=== PATIENT | male | born 1945 | race Caucasian/White ===

== ENCOUNTER 2023-10-20 10:37 | Inpatient (IN) ==
--- NOTE | 2023-10-20 11:19 | XRay Report ---
XR chest 1V portable HISTORY: Shortness of breath. confusion COMPARISON: None. FINDINGS: There are low lung volumes. No pneumothorax. No pleural effusions. The cardiac silhouette i s mildly enlarged. There is mild diffuse interstitial thickening. This is likely chronic. No focal sho ng consolidations to suggest pneumonia. No evidence for pulmonary edema. There are old, healed right- sided rib fractures. IMPRESSION: 1. No acute process within the chest. 2. Mild cardiomegaly. ACT 112: Negative or not required by law. Electronically signed by: Sanchez Covington M.D. 10/20/2023 11:17 AM
[2023-10-20 11:55] LABS: Basophils # (auto) 0.01 K/uL (0.00-0.20); Basophils % (auto) 0.1 %; Eosinophils # (auto) 0.01 K/uL (0.00-0.50); Eosinophils % (auto) 0.1 %; Hematocrit (blood only) 44.8 % (42.0-52.0); Hemoglobin 14.8 g/dl (14.0-18.0); Immature Granulocytes # (auto) 0.19 K/uL (0.01-0.20); Immature Granulocytes % (auto) 1.4 %; Lymphocytes # (auto) 0.92 K/uL (1.20-3.40); Lymphocytes % (auto) 6.6 %; Mean Corpuscular Hemoglobin 29.8 pg (25.0-34.0); Mean Corpuscular Volume 90.1 fL (80.0-100.0); Mean Platelet Volume 11.6 fL (9.4-12.4); Monocytes # (auto) 0.98 K/uL (0.11-0.59); Monocytes % (auto) 7.1 %; Neutrophils # (auto) 11.77 K/uL (1.40-6.50); Neutrophils % (auto) 84.7 %; Platelet Count 210 K/uL (130-400); RDW Coefficient of Variation 12.8 % (11.5-14.5); RDW Standard Deviation 42.5 fL (36.4-46.3); Red Blood Count 4.97 M/uL (4.70-6.10); White Blood Count 13.88 K/ul (4.8-10.8)
[2023-10-20 12:05] LABS: Prothrombin Time 10.8 Seconds (9.0-12.0)
[2023-10-20 12:31] LABS: Troponin I High Sensitivity 25.7 pg/ml (0-20)
[2023-10-20 12:32] LABS: Albumin Level 4.4 gm/dl (3.4-5.0); Magnesium 2.6 mg/dl (1.7-2.4); Potassium 4.2 mmol/L (3.5-5.1)
[2023-10-20 12:38] LABS: Albumin Globulin Ratio 1.6 (0.9-2); BUN Creatinine Ratio 16.8 (10-20); Est GFR (African American) 37.2 ml/min; Est GFR (Non-African American) 32.1 ml/min; Globulin 2.8 gm/dl (2.5-4.0); Total Protein 7.2 gm/dl (6.0-8.3)
[2023-10-20 12:40] LABS: Thyroid Stimulating Hormone 0.92 uIu/ml (0.300-4.500)
[2023-10-20 12:44] LABS: Adenovirus PCR Not Detected (NotDetected); Bordetella parapertussis PCR Not Detected (NotDetected); Bordetella pertussis PCR Not Detected (NotDetected); Chlamydia pneumoniae PCR Not Detected (NotDetected); Coronavirus 229E PCR Not Detected (NotDetected); Coronavirus CoV-2 (COVID19)PCR Not Detected (NotDetected); Coronavirus HKU1 PCR Not Detected (NotDetected); Coronavirus NL63 PCR Not Detected (NotDetected); Coronavirus OC43PCR Not Detected (NotDetected); Human Metapneumovirus PCR Not Detected (NotDetected); Influenza A PCR Not Detected (NotDetected); Influenza B PCR Not Detected (NotDetected); Mycoplasma pneumoniae PCR Not Detected (NotDetected); Parainfluenza Virus 1 PCR Not Detected (NotDetected); Parainfluenza Virus 2 PCR Not Detected (NotDetected); Parainfluenza Virus 3 PCR Not Detected (NotDetected); Parainfluenza Virus 4 PCR Not Detected (NotDetected); Respiratory Syncytial VirusPCR Not Detected (NotDetected); Rhinovirus/Enterovirus PCR Not Detected (NotDetected)
--- NOTE | 2023-10-20 12:55 | CT Scan Report ---
CT head/brain wo con CLINICAL HISTORY: 78 years-old Male with confusion. No acute process. Acutely altered mental status TECHNIQUE: Multiple axial CT images of the head were obtained without contrast. A dose lowering tech nique was utilized adhering to the principles of ALARA. CT DOSE: 625.8 mGy.cm COMPARISON: None. FINDINGS: No acute intracranial hemorrhage, midline shift, intracranial mass, hydrocephalus, territorial ischem ia or abnormal extra-axial collection. Coarse calcifications of the falx cerebri. Involutional change s with chronic microvascular ischemic disease. Ventriculomegaly is likely on an ex vacuo basis. The calvarium is intact. The paranasal sinuses, mastoid air cells, and middle ear cavities are clear . IMPRESSION: No acute intracranial abnormality. ACT 112: Negative or not required by law. The above report was generated using voice recognition software. It may contain grammatical, syntax o r spelling errors. Electronically signed by: Sami Noble M.D. 10/20/2023 12:54 PM
--- NOTE | 2023-10-20 13:29 | Emergency Department Note ---
Impression & Plan Confusion, Non-ST elevation LA (NSTEMI), Acute dehydration, Acute hypernatremia, Elevated serum creatinine ED Provider Note HISTORY OF PRESENT ILLNESS: Patient is a 78-year-old male presenting with worsening mental status. Patient reportedly has "a decline in mental status" over the last few weeks, but worse in the last 48 hours. Per report from daughter, patient has been having decreased oral intake and been sleeping more frequently than normal. Daughter reports he is not his normal self. Patient does not answer questions and refuses to partake in examination. ROS: as above PHYSICAL EXAM: Constitutional: Patient appears in no acute distress. HENT: Head: Normocephalic and atraumatic. Eyes: EOMI, PERRL Mouth/Throat: Mucous membranes moist. Neck: Trachea midline. Neck supple. Cardiovascular: RRR, No murmurs, rubs or gallops. Intact distal pulses. Pulmonary/Chest: No respiratory distress. Breath sounds clear and equal bilaterally. No wheezes or rales. Abdominal: Abdomen soft, no tenderness, rebound or guarding. Musculoskeletal: No edema, tenderness or deformity noted. Skin: Warm and dry. No rash, erythema, pallor or cyanosis Neurological: Alert. CN II-XII grossly intact, moving all extremities spontaneously. MDM: - Vitals signs showed hypertension and tachycardia. - History obtained via patient. History as above. - Chronic conditions affecting care: dementia - Differential diagnoses include, but are not limited to: CVA; intracranial hemorrhage; pneumonia; UTI; dehydration; ACS - Order placed for continuous cardiac monitoring. At this time, monitor showed rate of 73 bpm with normal sinus rhythm, per my interpretation. - External medical records reviewed. - EKG interpreted by myself showed normal sinus rhythm. Rate 96 bpm. Qt 424. No acute ischemic changes. Noted to have occasional PVCs and RBBB. - Laboratory workup interpreted by myself showed leukocytosis (WBC 13.88); hypernatremia (Na 149); elevated creatinine (Cr 1.97); hypermagnesemia (Mg 2.6); elevated troponin (25.7); normal TSH - CXR negative for pneumonia, per my interpretation - CT head wo contrast negative for acute pathology - UA negative for infection - Viral respiratory panel negative - Patient given 1L NS in ER for hydration - Unclear etiology for his worsening confusion. May just be a progression of his dementia. However, he does appear to be dehydrated on laboratory workup, and this may be exacerbating his underlying etiology. - Discussion was had with rn case manager hospice about patient's case and need for admission - Hospitalist consulted for admission - [facility] ASSESSMENT AND PLAN: Diagnosis: confusion; NSTEMI; acute dehydration; elevated serum creatinine; acute hypernatremia Plan: admit Past Med/Surg History Social History Smoking Status: Unknown if ever smoked Home Meds Home Medications Medication Instructions Recorded Confirmed acetaminophen 325 mg tablet 325 mg PO Q6H PRN PAIN OR FEVER 10/20/23 10/20/23 acetaminophen 325 mg tablet 650 mg PO .@8AM,6PM 10/20/23 10/20/23 aspirin 81 mg tablet,delayed 81 mg PO .@8AM 10/20/23 10/20/23 release donepezil 10 mg tablet 20 mg PO .@8AM 10/20/23 10/20/23 finasteride 5 mg tablet 5 mg PO .@8AM 10/20/23 10/20/23 memantine 5 mg tablet 5 mg PO .@8AM,6PM 10/20/23 10/20/23 metoprolol succinate 25 mg 25 mg PO .@8AM 10/20/23 10/20/23 tablet,extended release 24 hr risperidone 0.25 mg tablet 0.25 mg PO .@8AM 10/20/23 10/20/23 sulfamethoxazole 800 1 tab PO .@8AM,6PM 10/20/23 10/20/23 mg-trimethoprim 160 mg tablet (Bactrim DS) tamsulosin 0.4 mg capsule 0.4 mg PO .@8AM 10/20/23 10/20/23 trazodone 100 mg tablet 200 mg PO .@6PM 10/20/23 10/20/23 valacyclovir 1 gram tablet 1,000 mg PO .@8AM,12PM,6PM 10/20/23 10/20/23 Results & Data (ED) Vital Signs Vital Signs - 24 hr 10/20/23 11:09 10/20/23 11:37 10/20/23 11:38 Temperature 37.6 C H 37.4 C Temperature Source Oral Oral Pulse Rate 98 H 96 H Pulse Rate [Right Finger] 92 H Pulse Rhythm Regular Pulse Rhythm [Right Finger] Regular Pulse Strength [Right Finger] Normal Respiratory Rate 20 20 20 Respiratory Effort / Characteristics Non-Labored Spontaneous Non-Labored Spontaneous Respiratory Depth Normal Normal Respiratory Pattern Regular Regular Blood Pressure 134/95 Blood Pressure [Left Arm] 154/98 H Blood Pressure Mean 108 Blood Pressure Mean [Left Arm] 116 Blood Pressure Position [Left Arm] Semi-fowlers Pulse Oximetry 92 94 94 Oxygen Delivery Method Room Air Room Air Room Air Sepsis Recent Fever Within 48 Hours No Sepsis New/Unexplained Change in Mental Status N/A Sepsis Action Taken by Nursing No Action Required 10/20/23 11:39 10/20/23 11:39 10/20/23 14:20 Temperature 37.1 C Temperature Source Oral Pulse Rate 94 H Pulse Rate [Right Finger] 73 Pulse Rhythm Pulse Rhythm [Right Finger] Regular Pulse Strength [Right Finger] Normal Respiratory Rate 20 Respiratory Effort / Characteristics Non-Labored Spontaneous Respiratory Depth Normal Respiratory Pattern Regular Blood Pressure Blood Pressure [Left Arm] 144/76 H Blood Pressure Mean Blood Pressure Mean [Left Arm] 98 Blood Pressure Position [Left Arm] Semi-fowlers Pulse Oximetry 94 94 Oxygen Delivery Method Room Air Room Air Sepsis Recent Fever Within 48 Hours Sepsis New/Unexplained Change in Mental Status Sepsis Action Taken by Nursing Laboratory Data 10/20/23 11:33 10/20/23 11:33 Lab Results 10/20/23 10/20/23 10/20/23 Range/Units 11:33 11:51 14:13 WBC 13.88 H (4.8-10.8) K/ul RBC 4.97 (4.70-6.10) M/uL Hgb 14.8 (14.0-18.0) g/dl Hct 44.8 (42.0-52.0) % MCV 90.1 (80.0-100.0) fL MCH 29.8 (25.0-34.0) pg MCHC 33.0 (32.0-36.0) g/dL RDW Std Deviation 42.5 (36.4-46.3) fL RDW Coeff of Lalo 12.8 (11.5-14.5) % Plt Count 210 (130-400) K/uL MPV 11.6 (9.4-12.4) fL Immature Gran % (Auto) 1.4 % Neut % (Auto) 84.7 % Lymph % (Auto) 6.6 % [place] % (Auto) 7.1 % Eos % (Auto) 0.1 % Baso % (Auto) 0.1 % Neut # (Auto) 11.77 H (1.40-6.50) K/uL Lymph # (Auto) 0.92 L (1.20-3.40) K/uL [place] # (Auto) 0.98 H (0.11-0.59) K/uL Eos # (Auto) 0.01 (0.00-0.50) K/uL Baso # (Auto) 0.01 (0.00-0.20) K/uL Immature Gran # (Auto) 0.19 (0.01-0.20) K/uL PT 10.8 (9.0-12.0) Seconds INR 1.0 (0.9-1.1) Sodium 149 H (136-145) mmol/L Potassium 4.2 (3.5-5.1) mmol/L Chloride 118 H (98-107) mmol/L Carbon Dioxide 23 (21-32) mmol/L Anion Gap 8 (3-11) BUN 33 H (6-23) mg/dl Creatinine 1.97 H (0.6-1.4) mg/dl Est Cr Clr Drug Dosing 36.0 ml/min Est GFR ( Amer) 37.2 ml/min Est GFR (Non-Af Amer) 32.1 ml/min BUN/Creatinine Ratio 16.8 (10-20) Glucose 93 (70-99(Fasting)) mg/dl POC Glucose 100 H (70-99) mg/dl Lactate 1.0 (0.4-2.0) mmol/L Calcium 10.0 (8.6-10.3) mg/dl Magnesium 2.6 H (1.7-2.4) mg/dl Total Bilirubin 1.0 (0.2-1.0) mg/dl AST 17 (13-39) U/L ALT 14 (7-52) U/L Alkaline Phosphatase 101 (34-104) U/L Troponin I High Sens 25.7 H (0-20) pg/ml Total Protein 7.2 (6.0-8.3) gm/dl Albumin 4.4 (3.4-5.0) gm/dl Globulin 2.8 (2.5-4.0) gm/dl Albumin/Globulin Ratio 1.6 (0.9-2) TSH 0.920 (0.300-4.500) uIu/ml Urine Color Dark Yellow Urine Appearance Clear (Clear) Urine pH 5.5 (4.5-7.5) Ur Specific [place] 1.034 H (1.000-1.030) Urine Protein Trace H (Negative) Urine Glucose (UA) Negative (Negative) Urine Ketones 1+ H (Negative) Urine Blood 2+ H (Negative) Urine Nitrite Negative (Negative) Urine Bilirubin Negative (Negative) Urine Urobilinogen Negative (Negative) Ur Leukocyte Esterase Negative (Negative) Urine WBC (Auto) 0-5 (0-5) /hpf Urine RBC (Auto) >20 H (0-2) /hpf U Hyaline Cast (Auto) 3-5 H (0-2) /lpf U Epithel Cells (Auto) 0-2 (0-2) /hpf Urine Bacteria (Auto) None Seen (None Seen) Adenovirus (PCR) Not Detected (NotDetected) B. pertussis DNA (PCR) Not Detected (NotDetected) B.parapertussis DNA PCR Not Detected (NotDetected) C. pneumoniae DNA (PCR) Not Detected (NotDetected) Coronavirus OC43 (PCR) Not Detected (NotDetected) Coronavirus HKU1 (PCR) Not Detected (NotDetected) Coronavirus 229E (PCR) Not Detected (NotDetected) SARS-CoV-2 (PCR) Not Detected (NotDetected) Coronavirus NL63 (PCR) Not Detected (NotDetected) Human Metapneumovir PCR Not Detected (NotDetected) Influenza Type A (PCR) Not Detected (NotDetected) Influenza Type B (PCR) Not Detected (NotDetected) M. pneumoniae (PCR) Not Detected (NotDetected) Parainfluenza 1 (PCR) Not Detected (NotDetected) Parainfluenza 2 (PCR) Not Detected (NotDetected) Parainfluenza 3 (PCR) Not Detected (NotDetected) Parainfluenza 4 (PCR) Not Detected (NotDetected) RSV (PCR) Not Detected (NotDetected) Entero/Rhino (PCR) Not Detected (NotDetected) Administered Medications Discontinued Medications Sodium Chloride (Nss) 1,000 mls @ 999 mls/hr IV .Q1H1M ONE Stop: 10/20/23 14:25 Last Admin: 10/20/23 14:21 Dose: 999 mls/hr Documented By: CAW Imaging Data Radiologist's Impression: Chest X-Ray 10/20/23 10:47 XR chest 1V portable HISTORY: Shortness of breath. confusion COMPARISON: None. FINDINGS: There are low lung volumes. No pneumothorax. No pleural effusions. The cardiac silhouette is mildly enlarged. There is mild diffuse interstitial thickening. This is likely chronic. No focal lung consolidations to suggest pneumonia. No evidence for pulmonary edema. There are old, healed right-sided rib fractures. IMPRESSION: 1. No acute process within the chest. 2. Mild cardiomegaly. ACT 112: Negative or not required by law. Electronically signed by: Sanchez Covington M.D. 10/20/2023 11:[address] 10/20/23 10:47 CT head/brain wo con CLINICAL HISTORY: 78 years-old Male with confusion. No acute process. Acutely altered mental status TECHNIQUE: Multiple axial CT images of the head were obtained without contrast. A dose lowering technique was utilized adhering to the principles of ALARA. CT DOSE: 625.8 mGy.cm COMPARISON: None. FINDINGS: No acute intracranial hemorrhage, midline shift, intracranial mass, hydrocephalus, territorial ischemia or abnormal extra-axial collection. Coarse calcifications of the falx cerebri. Involutional changes with chronic microvascular ischemic disease. Ventriculomegaly is likely on an ex vacuo basis. The calvarium is intact. The paranasal sinuses, mastoid air cells, and middle ear cavities are clear. IMPRESSION: No acute intracranial abnormality. ACT 112: Negative or not required by law. The above report was generated using voice recognition software. It may contain grammatical, syntax or spelling errors. Electronically signed by: Sami Noble M.D. 10/20/2023 12:54 PM Discharge Plan Visit Data Chief Complaint: Altered Mental Status ED Provider: Taty Sequeira Discharge Problem: Confusion, Non-ST elevation LA (NSTEMI), Acute dehydration, Acute hypernatremia, Elevated serum creatinine Forms Stand Alone Forms: [employer] Prescriptions Prescriptions: No Action acetaminophen 325 mg tablet 650 mg PO .@8AM,6PM donepezil 10 mg Tablet 20 mg PO .@8AM risperidone 0.25 mg Tablet 0.25 mg PO .@8AM aspirin [Aspir-81] 81 mg Tablet,Delayed Release (Dr/Ec) 81 mg PO .@8AM tamsulosin 0.4 mg Capsule 0.4 mg PO .@8AM trazodone 100 mg tablet 200 mg PO .@6PM metoprolol succinate 25 mg Tablet Extended Release 24 Hr 25 mg PO .@8AM finasteride 5 mg Tablet 5 mg PO .@8AM memantine 5 mg tablet 5 mg PO .@8AM,6PM acetaminophen 325 mg Tablet 325 mg PO Q6H PRN (Reason: PAIN OR FEVER) valacyclovir 1 gram Tablet 1,000 mg PO .@8AM,12PM,6PM sulfamethoxazole-trimethoprim [Bactrim DS] 800-160 mg Tablet 1 tab PO .@8AM,6PM Referrals Referrals: Nakul Del Rio [Primary Care Provider] -
[2023-10-20] MEDS: SODIUM CHLORIDE 0.9% 1,000 ML IV ONE (14:21)
[2023-10-20 14:48] LABS: Appearance Urine Clear (Clear); Bacteria Urine Automated None Seen (None Seen); Bilirubin Urine Negative (Negative); Blood Urine 2+ (Negative); Color Urine Dark Yellow; Epithelial Cell Urine Auto 0-2 /hpf (0-2); Glucose Urine UA Negative (Negative); Ketones Urine 1+ (Negative); Leukocyte Esterase Urine Negative (Negative); Nitrite Urine Negative (Negative); Protein Urine Trace (Negative); RBC Urine Automated >20 /hpf (0-2); Specific Gravity Urine 1.034 (1.000-1.030); Urobilinogen Urine Negative (Negative); WBC Urine Automated 0-5 /hpf (0-5); pH Urine 5.5 (4.5-7.5)
--- NOTE | 2023-10-20 15:38 | History & Physical Report ---
Date of Service October 20, 2023 Assessment & Plan (1) Acute metabolic encephalopathy: (2) Acute hypernatremia: (3) Acute kidney injury: (4) Dementia: Plan Pt is a 78yoM with PMHx significant for Alzheimer's dementia, Hx of stroke, HLD, BPH, CKD, HTN and psoriasis presenting from [facility] with altered mental status. Acute Metabolic/Toxic Encephalopathy Alzheimer's Dementia Pt usually able to have a conversation at baseline Per family, has been choking on his food for the past day Head CT unremarkable Brain MRI pending UA not suggestive of infection Hypernatremia notes, possible cause of acute on chronic confusion New dysphagia- rule out stroke, speech consult. Head and neck CTA with contrast deferred in setting of MOHINDER, brain MRI pending Has Alzheimer's Dementia at baseline Delirium precautions. Frequent reorientation, avoid sedating medications Hypernatremia Sodium of 149 noted on arrival Received fluid bolus of NSS 1L in the ED Urine osm and sodium pending Nephrology consulted, appreciate recs D5W with 1/2NSS q4h BMP Hypermagnesemia Mag elevated at 2.6 Continue to monitor with AM labs MOHINDER on CKD Pt with noted Cr of 1.97 Cr was normal two months ago Continue on fluids Monitor with BMP Cardiomegaly Elevated Trop Trop elevated at 25.7, continue to trend EKG with sinus rhythm with PVCs, RBBB Echo ordered and pending Telemetry monitoring Leukocytosis WBC elevated at 13K UA unremarkable at this time Chest XRAY with no signs of infection Abd nontender, no noted skin lesions or diarrhea Bactrim on pt's home med list- attempted unsuccessfully to contact [facility] to confirm dx for use Will hold at this time and monitor WBC, fever curve Continue other home meds as ordered Diet: HH DVT prophylaxis: Lovenox SQ Dispo: PCU/tele History of Present Illness Chief Complaint: AMS Primary Care Provider: [facility] Pt is a 78yoM with PMHx significant for Alzheimer's dementia, Hx of stroke, HLD, BPH, CKD, HTN and psoriasis presenting from [facility] with altered mental status. Pt's daughter who is his POA is at bedside as well as her . They provide most of the history as pt is confused and nonverbal at the time of the exam. They note that they were called by Marcola William and advised that the pt has been "declining over the last few days". States she was told that he was thrashing, having difficulty swallowing and eating. He was also sleeping more than usual. Notes he does get UTIs and they have made him confused in the past. Concerned that he might have another UTI. Pt was brought in for further evaluation and noted to have hypernatremia and an MOHINDER. He was treated with IV fluids in the ED. Allergies Allergy/AdvReac Type Severity Reaction Status Date / Time No Known Allergies Allergy Unverified 10/20/23 17:46 Home Medications Medication Instructions Recorded Confirmed Type acetaminophen 325 mg tablet 325 mg PO Q6H PRN PAIN OR FEVER 10/20/23 10/20/23 History acetaminophen 325 mg tablet 650 mg PO .@8AM,6PM 10/20/23 10/20/23 History aspirin 81 mg tablet,delayed 81 mg PO .@8AM 10/20/23 10/20/23 History release donepezil 10 mg tablet 20 mg PO .@8AM 10/20/23 10/20/23 History finasteride 5 mg tablet 5 mg PO .@8AM 10/20/23 10/20/23 History memantine 5 mg tablet 5 mg PO .@8AM,6PM 10/20/23 10/20/23 History metoprolol succinate 25 mg 25 mg PO .@8AM 10/20/23 10/20/23 History tablet,extended release 24 hr risperidone 0.25 mg tablet 0.25 mg PO .@8AM 10/20/23 10/20/23 History sulfamethoxazole 800 1 tab PO .@8AM,6PM 10/20/23 10/20/23 History mg-trimethoprim 160 mg tablet (Bactrim DS) tamsulosin 0.4 mg capsule 0.4 mg PO .@8AM 10/20/23 10/20/23 History trazodone 100 mg tablet 200 mg PO .@6PM 10/20/23 10/20/23 History valacyclovir 1 gram tablet 1,000 mg PO .@8AM,12PM,6PM 10/20/23 10/20/23 History Past Med/Surg History Social History Smoking Status: Unknown if ever smoked Review of Systems Review of Systems: All systems reviewed & are unremarkable except as noted in Subjective Physical Exam Physical Exam: General: Alert, disoriented. No acute distress Skin: No noted rashes or bruises Psych: Appropriate mood and affect Neuro: No gross deficits HEENT: NC/AT CV: RRR Resp: Breath sounds clear bilaterally, no increased effort of breathing. Abdomen: Soft, nontender, nondistended. Extremities: No edema in lower extremities bilaterally. Results & Data Results & Data Vital Signs (Past 12 Hours) Vital Signs Temp Pulse Pulse Resp BP BP Pulse Ox 10/20/23 15:36 73 10/20/23 14:20 37.1 C 73 20 144/76 H 94 10/20/23 11:39 94 H 10/20/23 11:39 94 10/20/23 11:38 37.4 C 92 H 20 154/98 H 94 10/20/23 11:37 96 H 20 94 10/20/23 11:09 37.6 C H 98 H 20 134/95 92 O2 Del Method 10/20/23 15:36 10/20/23 14:20 Room Air 10/20/23 11:39 10/20/23 11:39 Room Air 10/20/23 11:38 Room Air 10/20/23 11:37 Room Air 10/20/23 11:09 Room Air Diagnostic Findings Chest X-Ray 10/20/23 10:47 XR chest 1V portable HISTORY: Shortness of breath. confusion COMPARISON: None. FINDINGS: There are low lung volumes. No pneumothorax. No pleural effusions. The cardiac silhouette is mildly enlarged. There is mild diffuse interstitial thickening. This is likely chronic. No focal lung consolidations to suggest pneumonia. No evidence for pulmonary edema. There are old, healed right-sided rib fractures. IMPRESSION: 1. No acute process within the chest. 2. Mild cardiomegaly. ACT 112: Negative or not required by law. Electronically signed by: Sanchez Covington M.D. 10/20/2023 11:[address] 10/20/23 10:47 CT head/brain wo con CLINICAL HISTORY: 78 years-old Male with confusion. No acute process. Acutely altered mental status TECHNIQUE: Multiple axial CT images of the head were obtained without contrast. A dose lowering technique was utilized adhering to the principles of ALARA. CT DOSE: 625.8 mGy.cm COMPARISON: None. FINDINGS: No acute intracranial hemorrhage, midline shift, intracranial mass, h ydrocephalus, territorial ischemia or abnormal extra-axial collection. Coarse calcifications of the falx cerebri. Involutional changes with chronic microvascular ischemic disease. Ventriculomegaly is likely on an ex vacuo basis. The calvarium is intact. The paranasal sinuses, mastoid air cells, and middle ear cavities are clear. IMPRESSION: No acute intracranial abnormality. ACT 112: Negative or not required by law. The above report was generated using voice recognition software. It may contain grammatical, syntax or spelling errors. Electronically signed by: Sami Noble M.D. 10/20/2023 12:54 PM
--- NOTE | 2023-10-20 15:56 | Electrocardiogram Report ---
Test Reason : Blood Pressure : / mmHG Vent. Rate : 096 BPM Atrial Rate : 096 BPM P-R Int : 154 ms QRS Dur : 126 ms QT Int : 424 ms P-R-T Axes : 032 075 -01 degrees QTc Int : 535 ms Sinus rhythm with occasional Premature ventricular complexes and Premature atrial complexes Right bundle branch block Abnormal ECG No previous ECGs available Confirmed by Augusto Morrow ([id number]) on 10/20/2023 3:56:33 PM Referred By: Nicola Walker Confirmed By:Augusto Morrow
[2023-10-20 16:31] LABS: BUN Creatinine Ratio 16.3 (10-20); Calcium 9.3 mg/dl (8.6-10.3); Creatinine Clr Calc Pharmacy 38.6 ml/min; Est GFR (African American) 40.4 ml/min; Est GFR (Non-African American) 34.8 ml/min; Potassium 4.1 mmol/L (3.5-5.1)
[2023-10-20] MEDS: Patient's ALLERGY Info needs ENTERED SCH (17:43)
[2023-10-20] MEDS: D5W AND 1/2NSS 1,000 ML IV SCH (18:03)
[2023-10-20 19:38] LABS: Troponin I High Sensitivity 30.6 pg/ml (0-20)
[2023-10-20] MEDS: ENOXAPARIN INJ 40 MG/0.4 ML SYR SQ SCH (20:01)
[2023-10-20] MEDS: TAMSULOSIN HCL 0.4 MG CAP PO SCH (20:06)
[2023-10-20] MEDS: ACETAMINOPHEN 325 MG TAB PO SCH (20:06)
[2023-10-20] MEDS: valACYclovir HCL 500 MG TABLET PO SCH (20:07)
[2023-10-20] MEDS: DONEPEZIL HCL 10 MG TAB PO SCH (20:07)
[2023-10-20] MEDS: ASPIRIN 81 MG ECTAB PO SCH (20:07)
[2023-10-20] MEDS: MEMANTINE HCL 5 MG TAB PO SCH (20:07)
[2023-10-20] MEDS: risperiDONE 0.25 MG TAB PO SCH (20:08)
[2023-10-20] MEDS: traZODone HCL 100 MG TAB PO SCH (20:08)
[2023-10-20] MEDS: METOPROLOL SUCC 25MG EXT REL TAB PO SCH (20:08)
[2023-10-20] MEDS: FINASTERIDE 5 MG TAB PO SCH (20:08)
[2023-10-20 20:32] LABS: Calcium 9.1 mg/dl (8.6-10.3); Potassium 4.1 mmol/L (3.5-5.1)
[2023-10-20 20:35] LABS: BUN Creatinine Ratio 15.9 (10-20); Creatinine Clr Calc Pharmacy 43.3 ml/min; Est GFR (African American) 46.4 ml/min
[2023-10-20 23:13] LABS: BUN Creatinine Ratio 17.1 (10-20); Calcium 8.9 mg/dl (8.6-10.3); Creatinine Clr Calc Pharmacy 46.7 ml/min; Est GFR (African American) 50.9 ml/min; Est GFR (Non-African American) 43.9 ml/min
[2023-10-20] MEDS: GADOBUTROL 65ML VIAL IV ONE (23:23)
--- NOTE | 2023-10-21 01:24 | Magnetic Resonance Report ---
Exam(s): MRI HEAD W/WO Contrast IV Amt: 9cc gadavist EXAM: MR Head Without and With Intravenous Contrast CLINICAL HISTORY: AMS. TECHNIQUE: Magnetic resonance images of the head/brain without and with intravenous contrast in multiple planes. CONTRAST: 9cc Gadavist of IV contrast COMPARISON: Noncontrast head CT performed at 1159 hrs. FINDINGS: Brain: Punctate focus of diffusion restriction in the periventricular deep white matter of the right parietal region measuring only 5 mm. No intracranial hemorrhage. Diffuse periventricular hyperintense T2 FLAIR signal. Prominent parenchymal volume loss with prominence of the cerebral sulci and sylvian fissures. Ventricles: Prominence of the lateral and third ventricles are presumed related to central atrophy. No effacement or midline shift. The expected midline structures are noted on the sagittal imaging. Bones/joints: Unremarkable. No acute fracture. Soft tissues: No abnormal enhancement following contrast administration. Sinuses: Unremarkable as visualized. No acute sinusitis. Mastoid air cells: Unremarkable as visualized. No mastoid effusion. Orbits: Unremarkable as visualized. IMPRESSION: 1. Punctate focus of diffusion restriction in the periventricular deep white matter of the right parietal region measuring only 5 mm. Findings are consistent with a small lacunar infarct. The clinical significance of this finding is indeterminant and this is presumed incidental. 2. Prominent underlying chronic parenchymal involutional changes and deep white matter presumed microvascular changes. No abnormal parenchymal enhancement. 3. Prominence of the lateral and third ventricles is presumed related to central atrophy rather than alternate etiology such as normal pressure hydrocephalus. Electronically signed by: Jeffrey Bateman MD 10/21/23 01:23 AM
[2023-10-21 04:11] LABS: Basophils # (auto) 0.01 K/uL (0.00-0.20); Basophils % (auto) 0.1 %; Eosinophils # (auto) 0.21 K/uL (0.00-0.50); Eosinophils % (auto) 2.5 %; Hematocrit (blood only) 42.7 % (42.0-52.0); Hemoglobin 14.1 g/dl (14.0-18.0); Immature Granulocytes # (auto) 0.03 K/uL (0.01-0.20); Immature Granulocytes % (auto) 0.4 %; Lymphocytes # (auto) 1.52 K/uL (1.20-3.40); Mean Corpuscular Hemoglobin 30.6 pg (25.0-34.0); Mean Corpuscular Volume 92.6 fL (80.0-100.0); Mean Platelet Volume 11.7 fL (9.4-12.4); Monocytes % (auto) 7.1 %; Neutrophils # (auto) 6.08 K/uL (1.40-6.50); Neutrophils % (auto) 71.9 %; Platelet Count 187 K/uL (130-400); RDW Coefficient of Variation 12.9 % (11.5-14.5); RDW Standard Deviation 44.1 fL (36.4-46.3); Red Blood Count 4.61 M/uL (4.70-6.10); White Blood Count 8.45 K/ul (4.8-10.8)
[2023-10-21 04:12] LABS: Albumin Globulin Ratio 1.6 (0.9-2); BUN Creatinine Ratio 16.4 (10-20); Bilirubin,Total 1.3 mg/dl (0.2-1.0); Calcium 8.9 mg/dl (8.6-10.3); Creatinine Clr Calc Pharmacy 50.7 ml/min; Est GFR (African American) 56.2 ml/min; Est GFR (Non-African American) 48.5 ml/min; Globulin 2.5 gm/dl (2.5-4.0); Magnesium 2.5 mg/dl (1.7-2.4); Phosphorus 2.2 mg/dl (2.5-4.9); Potassium 4.1 mmol/L (3.5-5.1); Total Protein 6.5 gm/dl (6.0-8.3)
[2023-10-21] MEDS: hydrALAZINE HCL 20 MG/ML VIAL IV ONE (10:43)
[2023-10-21] MEDS: DEXTROSE 5% 1,000 ML IV SCH (11:52)
[2023-10-21] MEDS: ATORVASTATIN 20 MG TAB PO SCH (13:15)
[2023-10-21 16:18] LABS: BUN Creatinine Ratio 14.2 (10-20); Calcium 8.6 mg/dl (8.6-10.3); Est GFR (African American) 59.2 ml/min; Est GFR (Non-African American) 51.1 ml/min
[2023-10-21] MEDS: OLANZapine 10 MG/2.1 ML SDV IM STA ×2 (16:34→17:46)
--- NOTE | 2023-10-21 17:38 | Hospitalist Progress Note ---
Date of Service October 21, 2023 Assessment & Plan (1) Acute metabolic encephalopathy: (2) Acute hypernatremia: (3) Acute kidney injury: (4) Dementia: Plan Pt is a 78yoM with PMHx significant for Alzheimer's dementia, Hx of stroke, HLD, BPH, CKD, HTN and psoriasis presenting from [facility] with altered mental status. Acute Metabolic/Toxic Encephalopathy Alzheimer's Dementia Patient was brought to the hospital for concern of altered mental status. History of dementia at baseline; requiring assistance for ADLs. CT head on admission; no acute findings Brain MRI results reviewed; finding consistent of small lacunar infarct of 5 mm. Central atrophy. UA not suggestive of infection Delirium precautions Treatment of underlying hyponatremia/MOHINDER with IV fluids. Hypernatremia Acute kidney injury Likely due to poor oral intake. Sodium of 149 noted on arrival Sodium and creatinine down trended with IV hydration Continue to monitor BMP Avoid nephrotoxic agent Urinary retention status post Lombardo placementcontinue Lombardo for 7 to 10 days; trial of void after that. Hypermagnesemia Mag elevated at 2.6 Continue to monitor with AM labs Cardiomegaly Elevated Trop Trop elevated at 25.7, continue to trend EKG with sinus rhythm with PVCs, RBBB Echocardiogram shows EF of greater than 70%; LVH thickness is moderately increased in a concentric fashion with mild focal hypertrophy of the basal septum. Leukocytosis WBC elevated at 13K, likely stress related. Improvement noted UA unremarkable at this time Chest XRAY with no signs of infection Abd nontender, no noted skin lesions or diarrhea Continue other home meds as ordered Diet: HH DVT prophylaxis: Lovenox SQ Dispo: PCU/tele Discussed with patient's daughter over the phone regarding patient's overall condition. He has moderate to severe dementia; which likely has progressed leading to decreased free water intake resulting in hyponatremia and MOHINDER. Will see his response with IV fluids over the weekend. PT OT ordered. Time spent evaluating patient, direct bedside care, chart review, placing orders, interpretation of diagnostic studies, discussion with consultants, patient, and family members, as well as other required patient management activities is 50 minutes Please note the above document was generated using voice recognition software. It may contain grammatical, syntax or spelling errors. Any formal questions or concerns about the content, text or information contained within the body of this dictation should be directly addressed to the provider for clarification Admission and Anticipated Discharge Date Admission Date: October 20, 2023 Subjective Patient seen and examined at bedside. He is sitting up on the bed. He responds to his name; he is comfortable and is not in any distress. Review of Systems Review of Systems: All systems reviewed & are unremarkable except as noted in Subjective Physical Exam Physical Exam: Constitutional: Awake, oriented to self. Not in distress. Respiratory: normal respiratory effort, lungs clear to auscultation, no wheeze, rales, rhonchi. Normal insp/exp effort, no accessory muscle use Cardiovascular: RRR, no murmur, no edema Vessels: no JVD or carotid bruit Chest: normal inspection of chest Abdomen: normal bowel sounds, soft, nontender, no hepatosplenomegaly Musculoskeletal: no cyanosis or clubbing, extremities motor strength 5/5 Skin: no rashes, warm and dry normal turgor Neurologic: PERRL, EOMI, accommodation nl, no face palsy, no dysarthria CN's II- XI intact bilaterally and moves all extremities Psychiatric: Awake, oriented to self. Results & Data Results & Data Vital Signs (Past 12 Hours) Vital Signs Temp Pulse Pulse Resp BP Pulse Ox O2 Del Method 10/21/23 15:03 87 10/21/23 11:32 36.9 C 76 19 193/93 H 98 Room Air 10/21/23 11:23 Room Air 10/21/23 09:58 64 18 188/79 H 98 Room Air 10/21/23 06:00 60 16 160/82 H 97 Room Air
[2023-10-21] MEDS: LORazepam 0.5 MG in SYRINGE 0.25 ML IV STA (17:40)
[2023-10-21] MEDS: OLANZapine 5 MG TABLET PO SCH (20:14)
[2023-10-22 06:58] LABS: Albumin Globulin Ratio 1.6 (0.9-2); Albumin Level 3.9 gm/dl (3.4-5.0); BUN Creatinine Ratio 13.9 (10-20); Bilirubin,Total 1.7 mg/dl (0.2-1.0); Calcium 8.6 mg/dl (8.6-10.3); Creatinine Clr Calc Pharmacy 58.2 ml/min; Est GFR (African American) 66.3 ml/min; Est GFR (Non-African American) 57.2 ml/min; Globulin 2.5 gm/dl (2.5-4.0); Potassium 3.5 mmol/L (3.5-5.1); Total Protein 6.4 gm/dl (6.0-8.3)
--- NOTE | 2023-10-22 11:58 | Electrocardiogram Report ---
Test Reason : Blood Pressure : / mmHG Vent. Rate : 071 BPM Atrial Rate : 071 BPM P-R Int : 162 ms QRS Dur : 130 ms QT Int : 432 ms P-R-T Axes : 035 044 010 degrees QTc Int : 469 ms Sinus rhythm with Premature supraventricular complexes Right bundle branch block Abnormal ECG When compared with ECG of 20-OCT-2023 11:24, Premature ventricular complexes are no longer Present Nonspecific T wave abnormality has replaced inverted T waves in Inferior leads QT has shortened Confirmed by Augusto Morrow ([id number]) on 10/22/2023 11:57:47 AM Referred By: Nicola Walker Confirmed By:Augusto Morrow
--- NOTE | 2023-10-22 14:48 | Hospitalist Progress Note ---
Date of Service October 22, 2023 Assessment & Plan (1) Acute metabolic encephalopathy: (2) Acute hypernatremia: (3) Acute kidney injury: (4) Dementia: Plan Pt is a 78yoM with PMHx significant for Alzheimer's dementia, Hx of stroke, HLD, BPH, CKD, HTN and psoriasis presenting from [place] [facility] with altered mental status. Acute Metabolic/Toxic Encephalopathy Alzheimer's Dementia Patient was brought to the hospital for concern of altered mental status. History of dementia at baseline; requiring assistance for ADLs. CT head on admission; no acute findings Brain MRI results reviewed; finding consistent of small lacunar infarct of 5 mm. Central atrophy. UA not suggestive of infection Delirium precautions Treatment of underlying hyponatremia/MOHINDER with IV fluids. Started on Zyprexa 5 mg at/at night for behavior control Hypernatremia Acute kidney injury Likely due to poor oral intake. Sodium of 149 noted on arrival Sodium and creatinine down trended with IV hydration Continue to monitor BMP Avoid nephrotoxic agent Urinary retention status post Lombardo placementFoley removed; bladder scan did not show any retention. Continue to monitor with bladder scan daily Cardiomegaly Elevated Trop Trop elevated at 25.7, continue to trend EKG with sinus rhythm with PVCs, RBBB Echocardiogram shows EF of greater than 70%; LVH thickness is moderately increased in a concentric fashion with mild focal hypertrophy of the basal septum. Leukocytosis WBC elevated at 13K, likely stress related. Improvement noted UA unremarkable at this time Chest XRAY with no signs of infection Abd nontender, no noted skin lesions or diarrhea Continue other home meds as ordered Diet: HH DVT prophylaxis: Lovenox SQ Dispo: PCU/tele Call made to patient's daughter to update twice today. Unable to get in touch. Please note the above document was generated using voice recognition software. It may contain grammatical, syntax or spelling errors. Any formal questions or concerns about the content, text or information contained within the body of this dictation should be directly addressed to the provider for clarification Admission and Anticipated Discharge Date Admission Date: October 20, 2023 Subjective Patient agitated overnight He required restraints overnight He is awake and mumbling; not responding to any questions. Review of Systems Review of Systems: All systems reviewed & are unremarkable except as noted in Subjective Physical Exam Physical Exam: Constitutional: Awake, oriented to self. Not in distress. Respiratory: normal respiratory effort, lungs clear to auscultation, no wheeze, rales, rhonchi. Normal insp/exp effort, no accessory muscle use Cardiovascular: RRR, no murmur, no edema Vessels: no JVD or carotid bruit Chest: normal inspection of chest Abdomen: normal bowel sounds, soft, nontender, no hepatosplenomegaly Musculoskeletal: no cyanosis or clubbing, extremities motor strength 5/5 Skin: no rashes, warm and dry normal turgor Neurologic: PERRL, EOMI, accommodation nl, no face palsy, no dysarthria CN's II- XI intact bilaterally and moves all extremities Psychiatric: Awake, oriented to self. Results & Data Results & Data Vital Signs (Past 12 Hours) Vital Signs Temp Pulse Pulse Resp BP Pulse Ox O2 Del Method 10/22/23 11:19 36.6 C 94 H 16 160/98 H 98 Room Air 10/22/23 08:00 91 H 10/22/23 07:03 36.6 C 72 16 169/100 H 98 Room Air
[2023-10-23 06:01] LABS: BUN Creatinine Ratio 15.9 (10-20); Creatinine Clr Calc Pharmacy 53.8 ml/min; Est GFR (African American) 60.3 ml/min
--- NOTE | 2023-10-23 11:19 | Hospitalist Progress Note ---
Date of Service October 23, 2023 Assessment & Plan (1) Acute metabolic encephalopathy: (2) Acute hypernatremia: (3) Acute kidney injury: (4) Dementia: Plan Pt is a 78yoM with PMHx significant for Alzheimer's dementia, Hx of stroke, HLD, BPH, CKD, HTN and psoriasis presenting from [facility] with altered mental status. Acute Metabolic/Toxic Encephalopathy Alzheimer's Dementia Patient was brought to the hospital for concern of altered mental status. History of dementia at baseline; requiring assistance for most ADLs. CT head on admission; no acute findings Brain MRI results reviewed; finding consistent of small lacunar infarct of 5 mm. Central atrophy. UA not suggestive of infection Delirium precautions Started on Zyprexa 5 mg at/at night for behavior control One-to-one for now; Hypernatremia Acute kidney injury Likely due to poor oral intake. Sodium of 149 noted on arrival Sodium and creatinine down trended with IV hydration Continue to monitor BMP Avoid nephrotoxic agent Urinary retention status post Lombardo placementFoley removed; bladder scan did not show any retention. Continue to monitor with bladder scan daily Cardiomegaly Elevated Trop Trop elevated at 25.7, continue to trend EKG with sinus rhythm with PVCs, RBBB Echocardiogram shows EF of greater than 70%; LVH thickness is moderately increased in a concentric fashion with mild focal hypertrophy of the basal septum. Leukocytosis WBC elevated at 13K, likely stress related. Improvement noted UA unremarkable at this time Chest XRAY with no signs of infection Abd nontender, no noted skin lesions or diarrhea Continue other home meds as ordered Diet: HH DVT prophylaxis: Lovenox SQ Dispo: PCU/tele Please note the above document was generated using voice recognition software. It may contain grammatical, syntax or spelling errors. Any formal questions or concerns about the content, text or information contained within the body of this dictation should be directly addressed to the provider for clarification Admission and Anticipated Discharge Date Admission Date: October 20, 2023 Subjective Patient agitated overnight and trying to get out of bed. He is off restraint but is needing one-to-one sitter. Vitals remained stable. Review of Systems Review of Systems: Unobtainable due to cognitive status Physical Exam Physical Exam: Constitutional: Awake, oriented to self. Not in distress. Respiratory: normal respiratory effort, lungs clear to auscultation, no wheeze, rales, rhonchi. Normal insp/exp effort, no accessory muscle use Cardiovascular: RRR, no murmur, no edema Vessels: no JVD or carotid bruit Chest: normal inspection of chest Abdomen: normal bowel sounds, soft, nontender, no hepatosplenomegaly Musculoskeletal: no cyanosis or clubbing, extremities motor strength 5/5 Skin: no rashes, warm and dry normal turgor Neurologic: PERRL, EOMI, accommodation nl, no face palsy, no dysarthria CN's II- XI intact bilaterally and moves all extremities Psychiatric: Awake, oriented to self. Results & Data Results & Data Vital Signs (Past 12 Hours) Vital Signs Temp Pulse Resp BP Pulse Ox O2 Del Method 10/23/23 08:15 36.9 C 87 16 168/93 H 93 Room Air
[2023-10-23] MEDS: LACTATED RINGER'S 500 ML IV ONE (11:50)
[2023-10-23] MEDS: HALOPERIDOL LACTATE 5 MG/ML 1 ML VIAL IM PRN (19:57)
--- NOTE | 2023-10-24 15:19 | Hospitalist Progress Note ---
Date of Service October 24, 2023 Assessment & Plan (1) Acute metabolic encephalopathy: (2) Acute hypernatremia: (3) Acute kidney injury: (4) Dementia: Plan Pt is a 78yoM with PMHx significant for Alzheimer's dementia, Hx of stroke, HLD, BPH, CKD, HTN and psoriasis presenting from [facility] with altered mental status. Acute Metabolic/Toxic Encephalopathy Alzheimer's Dementia Patient was brought to the hospital for concern of altered mental status. History of dementia at baseline; requiring assistance for most ADLs. CT head on admission; no acute findings Brain MRI results reviewed; finding consistent of small lacunar infarct of 5 mm. Central atrophy. UA not suggestive of infection Delirium precautions Started on Zyprexa 5 mg at/at night for behavior control One-to-one for now; Hypernatremia Acute kidney injury Likely due to poor oral intake. Sodium of 149 noted on arrival Sodium and creatinine down trended with IV hydration Continue to monitor BMP Avoid nephrotoxic agent Urinary retention status post Lombardo placementFoley removed; bladder scan did not show any retention. Continue to monitor with bladder scan daily Cardiomegaly Elevated Trop Trop elevated at 25.7, continue to trend EKG with sinus rhythm with PVCs, RBBB Echocardiogram shows EF of greater than 70%; LVH thickness is moderately increased in a concentric fashion with mild focal hypertrophy of the basal septum. Leukocytosis WBC elevated at 13K, likely stress related. Improvement noted UA unremarkable at this time Chest XRAY with no signs of infection Abd nontender, no noted skin lesions or diarrhea Continue other home meds as ordered Diet: HH DVT prophylaxis: Lovenox SQ Dispo: Medical. Plan to discharge back to [facility] dementia unit. Case management on board. Please note the above document was generated using voice recognition software. It may contain grammatical, syntax or spelling errors. Any formal questions or concerns about the content, text or information contained within the body of this dictation should be directly addressed to the provider for clarification Admission and Anticipated Discharge Date Admission Date: October 20, 2023 Subjective Patient less agitated today. He ate all of his breakfast Compliant with care and not aggressive Review of Systems Review of Systems: Unobtainable due to cognitive status Physical Exam Physical Exam: Constitutional: Awake, oriented to self. Not in distress. Respiratory: normal respiratory effort, lungs clear to auscultation, no wheeze, rales, rhonchi. Normal insp/exp effort, no accessory muscle use Cardiovascular: RRR, no murmur, no edema Vessels: no JVD or carotid bruit Chest: normal inspection of chest Abdomen: normal bowel sounds, soft, nontender, no hepatosplenomegaly Musculoskeletal: no cyanosis or clubbing, extremities motor strength 5/5 Skin: no rashes, warm and dry normal turgor Neurologic: PERRL, EOMI, accommodation nl, no face palsy, no dysarthria CN's II- XI intact bilaterally and moves all extremities Psychiatric: Awake, oriented to self. Results & Data Results & Data Vital Signs (Past 12 Hours) Vital Signs Temp Pulse Resp BP Pulse Ox O2 Del Method 10/24/23 06:57 36.5 C 68 18 171/90 H 97 Room Air
[2023-10-25 07:23] LABS: Calcium 8.9 mg/dl (8.6-10.3); Creatinine Clr Calc Pharmacy 48.3 ml/min; Est GFR (African American) 52.9 ml/min; Est GFR (Non-African American) 45.7 ml/min; Potassium 3.6 mmol/L (3.5-5.1)
--- NOTE | 2023-10-25 14:02 | Hospitalist Progress Note ---
Date of Service October 25, 2023 Assessment & Plan (1) Acute metabolic encephalopathy: (2) Acute hypernatremia: (3) Acute kidney injury: (4) Dementia: Plan Pt is a 78yoM with PMHx significant for Alzheimer's dementia, Hx of stroke, HLD, BPH, CKD, HTN and psoriasis presenting from [facility] with altered mental status. Acute Metabolic/Toxic Encephalopathy Alzheimer's Dementia Patient was brought to the hospital for concern of altered mental status. History of dementia at baseline; requiring assistance for most ADLs. CT head on admission; no acute findings Brain MRI results reviewed; finding consistent of small lacunar infarct of 5 mm. Central atrophy. UA not suggestive of infection Delirium precautions Started on Zyprexa 5 mg at/at night for behavior control One-to-one as needed, wrist restraints in place, will try to remove but per nursing he is trying to get out of bed, hitting and pulled IV despite being in restrains Hypernatremia Acute kidney injury Likely due to poor oral intake. Sodium of 149 noted on arrival Sodium and creatinine down trended with IV hydration Continue to monitor BMP Avoid nephrotoxic agent will give additional L of fluid today due to increase in cr and increased behaviors Urinary retention status post Lombardo placement Lombardo removed; bladder scan did not show any retention. Continue to monitor with bladder scan daily Cardiomegaly Elevated Trop Trop elevated at 25.7, continue to trend EKG with sinus rhythm with PVCs, RBBB Echocardiogram shows EF of greater than 70%; LVH thickness is moderately increased in a concentric fashion with mild focal hypertrophy of the basal septum. Leukocytosis WBC elevated at 13K, likely stress related. Improvement noted UA unremarkable at this time Chest XRAY with no signs of infection Abd nontender, no noted skin lesions or diarrhea Continue other home meds as ordered Diet: HH DVT prophylaxis: Lovenox SQ Dispo: Medical. Plan to discharge back to [facility] dementia unit. Case management on board. not yet medically stable until can be free from medical/chemical restraints A total of 35 minutes was spent coordinating, documenting, and providing care for this patient excluding time spent in the performance of separately billed services. This included personally viewing all current laboratories and imaging studies, medication reconciliation, outpatient chart review, and discussion with specialists. Admission and Anticipated Discharge Date Admission Date: October 20, 2023 Subjective Pt seen and examined in room 354. F/U Dementia with agitation. ROS unobtainable. Wrist restraints in place. Per dispatch clerk pt with agitation overnight requiring wrist restraints be replaced. Haldol was also given. Review of Systems Review of Systems: All systems reviewed & are unremarkable except as noted in HPI & below Physical Exam Physical Exam: Gen: Elderly, M, confused, pleasant, alert HEENT: Normocephalic, atraumatic, conjunctivae moist, sclerae anicteric, mucous membranes dry Lung: Clear to Auscultation bilaterally, no wheezes/rales/rhonchi Heart: Regular rate, regular rhythm, 2/6 LILY RUSB Abdomen: Soft, NT, ND +BS x 4 Extremities: No edema Skin: Warm, no rash, negative turgor. Results & Data Results & Data Vital Signs (Past 12 Hours) Vital Signs Temp Pulse Resp BP Pulse Ox O2 Del Method 10/25/23 07:18 37.4 C 104 H 20 153/89 H 94 Room Air Laboratory Results BMP 10/25/23 06:19 Sodium 144 Potassium 3.6 Chloride 111 H Carbon Dioxide 23 BUN 28 H Creatinine 1.47 H Glucose 103 H Calcium 8.9 Medications Administered Current Inpatient Medications Acetaminophen (Acetaminophen 325 Mg Tab) 650 mg PO BID@0800,1800 [facility] Stop: 11/19/23 17:59 Last Admin: 10/25/23 08:26 Dose: 650 mg Aspirin (Aspirin 81 Mg Ectab) 81 mg PO DAILY@0800 [facility] Stop: 11/19/23 18:14 Last Admin: 10/25/23 08:26 Dose: 81 mg Atorvastatin Calcium (Atorvastatin 20 Mg Tab) 20 mg PO QAM [facility] Stop: 11/20/23 12:44 Last Admin: 10/25/23 08:26 Dose: 20 mg Enoxaparin Sodium (Enoxaparin Inj 40 Mg/0.4 Ml Syr) 40 mg SQ Q24H [facility] Stop: 11/19/23 18:59 Last Admin: 10/24/23 18:23 Dose: 40 mg Finasteride (Finasteride 5 Mg Tab) 5 mg PO DAILY@0800 [facility] Stop: 11/19/23 18:14 Last Admin: 10/25/23 08:26 Dose: 5 mg Haloperidol Lactate (Haloperidol Lactate 5 Mg/Ml 1 Ml Vial) 2.5 mg IM DAILY PRN PRN Reason: Agitation Stop: 11/21/23 00:35 Last Admin: 10/25/23 01:00 Dose: 2.5 mg Metoprolol Succinate (Metoprolol Succ 25mg Ext Rel Tab) 25 mg PO DAILY@0800 [facility] Stop: 11/19/23 18:14 Last Admin: 10/25/23 08:26 Dose: 25 mg Olanzapine (Olanzapine 5 Mg Tablet) 5 mg PO HS [facility] Stop: 11/20/23 20:59 Last Admin: 10/24/23 19:31 Dose: 5 mg Tamsulosin HCl (Tamsulosin Hcl 0.4 Mg Cap) 0.4 mg PO DAILY@0800 [facility] Stop: 11/19/23 07:59 Last Admin: 10/25/23 08:26 Dose: 0.4 mg Trazodone HCl (Trazodone Hcl 100 Mg Tab) 200 mg PO DAILY@1800 [facility] Stop: 11/19/23 18:14 Last Admin: 10/24/23 18:27 Dose: 200 mg Valacyclovir HCl (Valacyclovir Hcl 500 Mg Tablet) 1,000 mg PO BID@0800,1800 [facility] Stop: 01/19/24 18:01 Last Admin: 10/25/23 08:26 Dose: 1,000 mg
[2023-10-25] MEDS: NSS + 20MEQ KCL 20 MEQ/1,000 ML BAG IV SCH (16:31)
[2023-10-26 08:05] LABS: Hematocrit (blood only) 42.8 % (42.0-52.0); Hemoglobin 14.3 g/dl (14.0-18.0); Mean Corpuscular Hgb Conc 33.4 g/dL (32.0-36.0); Mean Corpuscular Volume 89.7 fL (80.0-100.0); Mean Platelet Volume 11.7 fL (9.4-12.4); Platelet Count 206 K/uL (130-400); RDW Coefficient of Variation 12.2 % (11.5-14.5); RDW Standard Deviation 39.8 fL (36.4-46.3); Red Blood Count 4.77 M/uL (4.70-6.10); White Blood Count 9.07 K/ul (4.8-10.8)
[2023-10-26 08:09] LABS: BUN Creatinine Ratio 15.9 (10-20); Calcium 8.8 mg/dl (8.6-10.3); Creatinine Clr Calc Pharmacy 62.8 ml/min; Est GFR (African American) 72.8 ml/min; Est GFR (Non-African American) 62.8 ml/min; Magnesium 2.1 mg/dl (1.7-2.4); Potassium 4.2 mmol/L (3.5-5.1)
[2023-10-26] MEDS: DEXTROSE 5% 1,000 ML IV SCH (09:57)
--- NOTE | 2023-10-26 13:27 | Hospitalist Progress Note ---
Date of Service October 26, 2023 Assessment & Plan (1) Acute metabolic encephalopathy: (2) Acute hypernatremia: (3) Acute kidney injury: (4) Dementia: Plan Pt is a 78yoM with PMHx significant for Alzheimer's dementia, Hx of stroke, HLD, BPH, CKD, HTN and psoriasis presenting from [facility] with altered mental status. Acute Metabolic/Toxic Encephalopathy Alzheimer's Dementia Patient was brought to the hospital for concern of altered mental status. History of dementia at baseline; requiring assistance for most ADLs. CT head on admission; no acute findings Brain MRI results reviewed; finding consistent of small lacunar infarct of 5 mm. Central atrophy. UA not suggestive of infection Delirium precautions Started on Zyprexa 5 mg at/at night for behavior control One-to-one as needed, wrist restraints in place, will try to remove today as pt has to be off restraints prior to going back to facility he has not required IM haldol silce 10/24 @ 0100 Hypernatremia Acute kidney injury Likely due to poor oral intake. Sodium of 149 noted on arrival Sodium and creatinine down trended with IV hydration Continue to monitor BMP Avoid nephrotoxic agent gave additional fluid yesterday, Na now mildly high today, likely 2/2 NSS will give 1 L of D5W, bmp in a.m. Urinary retention status post Lombardo placement Lombardo removed; bladder scan did not show any retention. Continue to monitor with bladder scan daily Cardiomegaly Elevated Trop Trop elevated at 25.7, continue to trend EKG with sinus rhythm with PVCs, RBBB Echocardiogram shows EF of greater than 70%; LVH thickness is moderately increased in a concentric fashion with mild focal hypertrophy of the basal septum. Leukocytosis WBC elevated at 13K, likely stress related. Improvement noted UA unremarkable at this time Chest XRAY with no signs of infection Abd nontender, no noted skin lesions or diarrhea Continue other home meds as ordered Diet: HH DVT prophylaxis: Lovenox SQ Dispo: Medical. Plan to discharge back to [facility] dementia unit. Case management on board. Will need to be off restraints prior to d/c A total of 35 minutes was spent coordinating, documenting, and providing care for this patient excluding time spent in the performance of separately billed services. This included personally viewing all current laboratories and imaging studies, medication reconciliation, outpatient chart review, and discussion with specialists. Discussed with daughter Hiwot on 10/24 and 10/25 and updated her regarding above. She agrees. Admission and Anticipated Discharge Date Admission Date: October 20, 2023 Subjective Pt seen and examined in room 354. F/U Dementia with agitation. ROS unobtainable. Wrist restraints in place. He did not require any IM Haldol in the last 24 hours. Review of Systems Review of Systems: Unobtainable due to cognitive status Physical Exam Physical Exam: Gen: Elderly, M, confused, sleeping but arouses to verbal stimuli, alert HEENT: Normocephalic, atraumatic, conjunctivae moist, sclerae anicteric, mucous membranes dry Lung: Clear to Auscultation bilaterally, no wheezes/rales/rhonchi Heart: Regular rate, regular rhythm, 2/6 LILY RUSB Abdomen: Soft, NT, ND +BS x 4 Extremities: No edema Skin: Warm, no rash, negative turgor. Results & Data Results & Data Vital Signs (Past 12 Hours) Vital Signs Temp Pulse Resp BP Pulse Ox O2 Del Method 10/26/23 07:51 36.4 C L 72 20 170/84 H 98 Room Air Laboratory Results Short CBC 10/26/23 Range/Units 07:19 WBC 9.07 (4.8-10.8) K/ul Hgb 14.3 (14.0-18.0) g/dl Hct 42.8 (42.0-52.0) % Plt Count 206 (130-400) K/uL BMP 10/26/23 07:19 Sodium 146 H Potassium 4.2 Chloride 115 H Carbon Dioxide 23 BUN 18 Creatinine 1.13 D Glucose 82 Calcium 8.8 Medications Administered Current Inpatient Medications Acetaminophen (Acetaminophen 325 Mg Tab) 650 mg PO BID@0800,1800 [facility] Stop: 11/19/23 17:59 Last Admin: 10/26/23 08:32 Dose: Not Given Aspirin (Aspirin 81 Mg Ectab) 81 mg PO DAILY@0800 [facility] Stop: 11/19/23 18:14 Last Admin: 10/26/23 08:33 Dose: Not Given Atorvastatin Calcium (Atorvastatin 20 Mg Tab) 20 mg PO QAM [facility] Stop: 11/20/23 12:44 Last Admin: 10/26/23 08:34 Dose: Not Given Enoxaparin Sodium (Enoxaparin Inj 40 Mg/0.4 Ml Syr) 40 mg SQ Q24H [facility] Stop: 11/19/23 18:59 Last Admin: 10/25/23 19:20 Dose: 40 mg Finasteride (Finasteride 5 Mg Tab) 5 mg PO DAILY@0800 [facility] Stop: 11/19/23 18:14 Last Admin: 10/26/23 08:34 Dose: Not Given Haloperidol Lactate (Haloperidol Lactate 5 Mg/Ml 1 Ml Vial) 2.5 mg IM DAILY PRN PRN Reason: Agitation Stop: 11/21/23 00:35 Last Admin: 10/25/23 01:00 Dose: 2.5 mg Dextrose (D5w) 1,000 mls @ 80 mls/hr IV .[id number] [facility] Stop: 10/26/23 21:14 Last Admin: 10/26/23 09:57 Dose: 80 mls/hr Metoprolol Succinate (Metoprolol Succ 25mg Ext Rel Tab) 25 mg PO DAILY@0800 [facility] Stop: 11/19/23 18:14 Last Admin: 10/26/23 08:33 Dose: Not Given Olanzapine (Olanzapine 5 Mg Tablet) 5 mg PO HS [facility] Stop: 11/20/23 20:59 Last Admin: 10/25/23 20:31 Dose: 5 mg Tamsulosin HCl (Tamsulosin Hcl 0.4 Mg Cap) 0.4 mg PO DAILY@0800 [facility] Stop: 11/19/23 07:59 Last Admin: 10/26/23 08:34 Dose: Not Given Trazodone HCl (Trazodone Hcl 100 Mg Tab) 200 mg PO DAILY@1800 [facility] Stop: 11/19/23 18:14 Last Admin: 10/25/23 17:18 Dose: 200 mg Valacyclovir HCl (Valacyclovir Hcl 500 Mg Tablet) 1,000 mg PO BID@0800,1800 [facility] Stop: 01/19/24 18:01 Last Admin: 10/26/23 08:32 Dose: Not Given
[2023-10-26] MEDS: hydrALAZINE HCL 20 MG/ML VIAL IV ONE (17:08)
[2023-10-27 08:04] LABS: BUN Creatinine Ratio 14.7 (10-20); Calcium 9.1 mg/dl (8.6-10.3); Creatinine Clr Calc Pharmacy 65.1 ml/min; Est GFR (Non-African American) 65.6 ml/min; Potassium 3.8 mmol/L (3.5-5.1)
[2023-10-27] MEDS: OLANZapine 5 MG TABLET PO STA (14:57)
--- NOTE | 2023-10-27 15:00 | Hospitalist Progress Note ---
Date of Service October 27, 2023 Assessment & Plan (1) Acute metabolic encephalopathy: (2) Acute hypernatremia: (3) Acute kidney injury: (4) Dementia: Plan Pt is a 78yoM with PMHx significant for Alzheimer's dementia, Hx of stroke, HLD, BPH, CKD, HTN and psoriasis presenting from [facility] with altered mental status. Acute Metabolic/Toxic Encephalopathy Alzheimer's Dementia Patient was brought to the hospital for concern of altered mental status. History of dementia at baseline; requiring assistance for most ADLs. CT head on admission; no acute findings Brain MRI results reviewed; finding consistent of small lacunar infarct of 5 mm. Central atrophy. UA not suggestive of infection Delirium precautions Started on Zyprexa 5 mg at/at night for behavior control One-to-one as needed, he has not required IM haldol silce 10/24 @ 0100 Hypernatremia Acute kidney injury Likely due to poor oral intake. Sodium of 149 noted on arrival Sodium and creatinine down trended with IV hydration Continue to monitor BMP Urinary retention status post Lombardo placement Lombardo removed; bladder scan did not show any retention. Continue to monitor with bladder scan daily Cardiomegaly Elevated Trop Trop elevated at 25.7, continue to trend EKG with sinus rhythm with PVCs, RBBB Echocardiogram shows EF of greater than 70%; LVH thickness is moderately increased in a concentric fashion with mild focal hypertrophy of the basal septum. Leukocytosis WBC elevated at 13K, likely stress related. Improvement noted UA unremarkable at this time Chest XRAY with no signs of infection Abd nontender, no noted skin lesions or diarrhea Continue other home meds as ordered Diet: HH DVT prophylaxis: Lovenox SQ Dispo: Medical. Plan to discharge back to [facility] dementia unit on hospice care. Evaluation will to come and evaluate the patient tomorrow to determine if patient can return back for Please note the above document was generated using voice recognition software. It may contain grammatical, syntax or spelling errors. Any formal questions or concerns about the content, text or information contained within the body of this dictation should be directly addressed to the provider for clarification Admission and Anticipated Discharge Date Admission Date: October 20, 2023 Subjective Patient seen and examined at bedside. He appears calm and comfortable. No periods For agitation; has not required Haldol Review of Systems Review of Systems: All systems reviewed & are unremarkable except as noted in Subjective Physical Exam Physical Exam: Constitutional: Awake, oriented to self. Not in distress. Respiratory: normal respiratory effort, lungs clear to auscultation, no wheeze, rales, rhonchi. Normal insp/exp effort, no accessory muscle use Cardiovascular: RRR, no murmur, no edema Vessels: no JVD or carotid bruit Chest: normal inspection of chest Abdomen: normal bowel sounds, soft, nontender, no hepatosplenomegaly Musculoskeletal: no cyanosis or clubbing, extremities motor strength 5/5 Skin: no rashes, warm and dry normal turgor Neurologic: PERRL, EOMI, accommodation nl, no face palsy, no dysarthria CN's II- XI intact bilaterally and moves all extremities Psychiatric: Awake, oriented to self. Results & Data Results & Data Vital Signs (Past 12 Hours) Vital Signs Temp Pulse Resp BP Pulse Ox O2 Del Method 10/27/23 10:05 36.8 C 91 H 18 131/82 96 Room Air
[2023-10-27] MEDS: OLANZapine 10 MG/2.1 ML SDV IM PRN (19:26)
--- NOTE | 2023-10-28 17:03 | Hospitalist Progress Note ---
Date of Service October 28, 2023 Assessment & Plan (1) Acute metabolic encephalopathy: (2) Acute hypernatremia: (3) Acute kidney injury: (4) Dementia: Plan Pt is a 78yoM with PMHx significant for Alzheimer's dementia, Hx of stroke, HLD, BPH, CKD, HTN and psoriasis presenting from [facility] with altered mental status. Acute Metabolic/Toxic Encephalopathy Alzheimer's Dementia Patient was brought to the hospital for concern of altered mental status. History of dementia at baseline; requiring assistance for most ADLs. CT head on admission; no acute findings Brain MRI results reviewed; finding consistent of small lacunar infarct of 5 mm. Central atrophy. UA not suggestive of infection Delirium precautions Started on Zyprexa 5 mg at/at night for behavior control One-to-one as needed, Needed IM haldol 5/2 evening. Hypernatremia Acute kidney injury Likely due to poor oral intake. Sodium of 149 noted on arrival Sodium and creatinine down trended with IV hydration Continue to monitor BMP Urinary retention status post Lombardo placement: Lombardo removed; bladder scan did not show any retention. Continue to monitor with bladder scan daily Cardiomegaly Elevated Trop Trop elevated at 25.7, continue to trend EKG with sinus rhythm with PVCs, RBBB Echocardiogram shows EF of greater than 70%; LVH thickness is moderately increased in a concentric fashion with mild focal hypertrophy of the basal septum. Leukocytosis WBC elevated at 13K at presentation, likely stress related. Improvement noted UA unremarkable at this time Chest XRAY with no signs of infection Abd nontender, no noted skin lesions or diarrhea Continue other home meds as ordered Diet: HH DVT prophylaxis: Lovenox SQ Dispo: Medical. Plan to discharge back to [facility] dementia unit on hospice care. Can be dc'd when they can take him. CM to assit. Please note the above document was generated using voice recognition software. It may contain grammatical, syntax or spelling errors. Any formal questions or concerns about the content, text or information contained within the body of this dictation should be directly addressed to the provider for clarification Admission and Anticipated Discharge Date Admission Date: October 20, 2023 Subjective Patient seen and examined at bedside. He appears calm and comfortable. Per RN agitated overnight, needed im zyprexa. Per RN, pt is eating ok. Physical Exam Physical Exam: Constitutional: calm, sleeping. Not in distress. Respiratory: normal respiratory effort, lungs clear to auscultation, no wheeze, rales, rhonchi. Normal insp/exp effort, no accessory muscle use Cardiovascular: RRR, no murmur, no edema Vessels: no JVD or carotid bruit Chest: normal inspection of chest Abdomen: normal bowel sounds, soft, nontender, no hepatosplenomegaly Musculoskeletal: no cyanosis or clubbing, extremities motor strength 5/5 Skin: no rashes, warm and dry normal turgor Neurologic: PERRL, EOMI, accommodation nl, no face palsy, no dysarthria CN's II- XI intact bilaterally and moves all extremities Results & Data Results & Data Vital Signs (Past 12 Hours) Vital Signs Temp Pulse Resp BP BP Pulse Ox O2 Del Method 10/28/23 14:26 36.3 C L 78 18 163/88 H 92 Room Air 10/28/23 07:15 36.6 C 72 18 180/92 H 165/95 H 98 Room Air
[2023-10-29 06:52] LABS: Hematocrit (blood only) 44.5 % (42.0-52.0); Mean Corpuscular Hemoglobin 29.8 pg (25.0-34.0); Mean Corpuscular Hgb Conc 33.7 g/dL (32.0-36.0); Mean Corpuscular Volume 88.3 fL (80.0-100.0); Mean Platelet Volume 12.3 fL (9.4-12.4); Platelet Count 218 K/uL (130-400); RDW Coefficient of Variation 12.3 % (11.5-14.5); RDW Standard Deviation 39.9 fL (36.4-46.3); Red Blood Count 5.04 M/uL (4.70-6.10); White Blood Count 15.88 K/ul (4.8-10.8)
[2023-10-29 07:31] LABS: BUN Creatinine Ratio 15.9 (10-20); Calcium 9.4 mg/dl (8.6-10.3); Creatinine Clr Calc Pharmacy 56.4 ml/min; Est GFR (African American) 63.8 ml/min; Magnesium 2.1 mg/dl (1.7-2.4); Phosphorus 3.6 mg/dl (2.5-4.9)
[2023-10-29] MEDS: SODIUM CHLORIDE 0.45 % 1,000 ML IV SCH (09:23)
--- NOTE | 2023-10-29 16:53 | Hospitalist Progress Note ---
Date of Service October 29, 2023 Assessment & Plan (1) Acute metabolic encephalopathy: (2) Acute hypernatremia: (3) Acute kidney injury: (4) Dementia: Plan Pt is a 78yoM with PMHx significant for Alzheimer's dementia, Hx of stroke, HLD, BPH, CKD, HTN and psoriasis presenting from [facility] with altered mental status. Acute Metabolic/Toxic Encephalopathy Alzheimer's Dementia Patient was brought to the hospital for concern of altered mental status. History of dementia at baseline; requiring assistance for most ADLs. CT head on admission; no acute findings Brain MRI results reviewed; finding consistent of small lacunar infarct of 5 mm. Central atrophy. UA not suggestive of infection Delirium precautions Started on Zyprexa 5 mg at/at night for behavior control One-to-one as needed, Needed IM haldol 10/26 evening. Hypernatremia Acute kidney injury Likely due to poor oral intake. Sodium of 149 noted on arrival Sodium and creatinine down trended with IV hydration Continue to monitor BMP. again Na uptrended today, starting half ns. this will be problem due to decreased po intake given dementia history encourage freq po intake. Urinary retention status post [place] placement: Lombardo removed; bladder scan did not show any retention. Continue to monitor with bladder scan daily Cardiomegaly Elevated Trop Trop elevated at 25.7, continue to trend EKG with sinus rhythm with PVCs, RBBB Echocardiogram shows EF of greater than 70%; LVH thickness is moderately increased in a concentric fashion with mild focal hypertrophy of the basal septum. Leukocytosis WBC elevated at 13K at presentation, likely stress related. Improvement noted UA unremarkable at this time Chest XRAY with no signs of infection Abd nontender, no noted skin lesions or diarrhea WBC again up 10/28, procal neg. no signs of infection. no fever. monitor off antibiotic. Continue other home meds as ordered Diet: HH DVT prophylaxis: Lovenox SQ Dispo: Medical. Plan to discharge back to [facility] dementia unit on hospice care. CM to assit. Please note the above document was generated using voice recognition software. It may contain grammatical, syntax or spelling errors. Any formal questions or concerns about the content, text or information contained within the body of this dictation should be directly addressed to the provider for clarification Admission and Anticipated Discharge Date Admission Date: October 20, 2023 Subjective Patient seen and examined at bedside. He appears calm and comfortable. Per RN not agitated overnight. Per RN, pt is eating ok and taking meds. No BM in few days per RN, will add bowel regimen. Physical Exam Physical Exam: Constitutional: calm, sleeping. Not in distress. Respiratory: normal respiratory effort, lungs clear to auscultation, no wheeze, rales, rhonchi. Normal insp/exp effort, no accessory muscle use Cardiovascular: RRR, no murmur, no edema Vessels: no JVD or carotid bruit Chest: normal inspection of chest Abdomen: normal bowel sounds, soft, nontender, no hepatosplenomegaly Musculoskeletal: no cyanosis or clubbing, extremities motor strength 5/5 Skin: no rashes, warm and dry normal turgor Neurologic: PERRL, EOMI, accommodation nl, no face palsy, no dysarthria CN's II-XI intact bilaterally and moves all extremities Results & Data Results & Data Vital Signs (Past 12 Hours) Vital Signs Temp Pulse Resp BP Pulse Ox O2 Del Method 10/29/23 14:51 36.6 C 97 H 18 119/78 96 Room Air 10/29/23 12:00 36.8 C 81 14 116/83 95 Room Air 10/29/23 08:08 36.6 C 69 16 175/92 H 94 Room Air
[2023-10-29] MEDS: POLYETHYLENE (MIRALAX) 17 GM PACK PO ONE (17:09)
[2023-10-29] MEDS: SENNA 8.6 MG TAB PO SCH (18:33)
[2023-10-30 11:18] LABS: Hematocrit (blood only) 40.4 % (42.0-52.0); Hemoglobin 13.5 g/dl (14.0-18.0); Mean Corpuscular Hemoglobin 29.7 pg (25.0-34.0); Mean Corpuscular Hgb Conc 33.4 g/dL (32.0-36.0); Mean Platelet Volume 12.2 fL (9.4-12.4); Platelet Count 196 K/uL (130-400); RDW Coefficient of Variation 12.3 % (11.5-14.5); RDW Standard Deviation 40.2 fL (36.4-46.3); Red Blood Count 4.54 M/uL (4.70-6.10); White Blood Count 9.37 K/ul (4.8-10.8)
[2023-10-30 11:37] LABS: BUN Creatinine Ratio 18.2 (10-20); Calcium 9.4 mg/dl (8.6-10.3); Creatinine Clr Calc Pharmacy 49.7 ml/min; Est GFR (African American) 54.7 ml/min; Est GFR (Non-African American) 47.2 ml/min; Potassium 4.3 mmol/L (3.5-5.1)
--- NOTE | 2023-10-30 16:24 | Hospitalist Progress Note ---
Date of Service October 30, 2023 Assessment & Plan (1) Acute metabolic encephalopathy: (2) Acute hypernatremia: (3) Acute kidney injury: (4) Dementia: Plan Pt is a 78yoM with PMHx significant for Alzheimer's dementia, Hx of stroke, HLD, BPH, CKD, HTN and psoriasis presenting from [facility] with altered mental status. Acute Metabolic/Toxic Encephalopathy Alzheimer's Dementia Patient was brought to the hospital for concern of altered mental status. History of dementia at baseline; requiring assistance for most ADLs. CT head on admission; no acute findings Brain MRI results reviewed; finding consistent of small lacunar infarct of 5 mm. Central atrophy. UA not suggestive of infection Delirium precautions Started on Zyprexa 5 mg at/at night for behavior control One-to-one as needed, Needed IM haldol 10/26 evening. Hypernatremia Acute kidney injury Likely due to poor oral intake. Sodium of 149 noted on arrival Sodium and creatinine down trended with IV hydration Continue to monitor BMP. Intermittently spikes in NA level, likely secondary to poor p.o. intake ISO advanced dementia. Monitor and utilize IVF as needed. Sodium level better today. Encourage frequent oral intake. Urinary retention status post Lombardo placement: Lombardo removed; bladder scan did not show any retention. Continue to monitor with bladder scan daily Cardiomegaly Elevated Trop Trop elevated at 25.7, continue to trend EKG with sinus rhythm with PVCs, RBBB Echocardiogram shows EF of greater than 70%; LVH thickness is moderately increased in a concentric fashion with mild focal hypertrophy of the basal septum. Leukocytosis WBC elevated at 13K at presentation, likely stress related. Improvement noted UA unremarkable at this time Chest XRAY with no signs of infection Abd nontender, no noted skin lesions or diarrhea WBC again up 10/28, procal neg. no signs of infection. no fever. monitor off antibiotic. WBC normalized 10/29. Continue other home meds as ordered Diet: HH DVT prophylaxis: Lovenox SQ Dispo: Medical. Plan to discharge back to [facility] dementia unit on hospice care. CM to assit. Please note the above document was generated using voice recognition software. It may contain grammatical, syntax or spelling errors. Any formal questions or concerns about the content, text or information contained within the body of this dictation should be directly addressed to the provider for clarification Admission and Anticipated Discharge Date Admission Date: October 20, 2023 Subjective Patient seen and examined at bedside. He appears calm and comfortable. Per RN not agitated overnight. Per RN, pt is eating ok and taking meds. No BM in few days per RN, c/w bowel regimen. Physical Exam Physical Exam: Constitutional: calm, sleeping. Not in distress. Respiratory: normal respiratory effort, lungs clear to auscultation, no wheeze, rales, rhonchi. Normal insp/exp effort, no accessory muscle use Cardiovascular: RRR, no murmur, no edema Vessels: no JVD or carotid bruit Chest: normal inspection of chest Abdomen: normal bowel sounds, soft, nontender, no hepatosplenomegaly Musculoskeletal: no cyanosis or clubbing, extremities motor strength 5/5 Skin: no rashes, warm and dry normal turgor Neurologic: PERRL, EOMI, accommodation nl, no face palsy, no dysarthria CN's II- XI intact bilaterally and moves all extremities Results & Data Results & Data Vital Signs (Past 12 Hours) Vital Signs Temp Pulse Resp BP BP Pulse Ox O2 Del Method 10/30/23 16:14 36.5 C 122/74 10/30/23 14:44 36.2 C L 81 16 167/83 H 97 Room Air 10/30/23 07:06 36.3 C L 89 18 143/88 H 97 Room Air
[2023-10-31] MEDS: SODIUM CHLORIDE 0.45 % 1,000 ML IV ONE (06:21)
[2023-10-31 09:17] LABS: BUN Creatinine Ratio 17.3 (10-20); Calcium 8.8 mg/dl (8.6-10.3); Creatinine Clr Calc Pharmacy 64.5 ml/min; Est GFR (African American) 75.2 ml/min; Est GFR (Non-African American) 64.9 ml/min; Phosphorus 2.6 mg/dl (2.5-4.9)
--- NOTE | 2023-10-31 16:19 | Hospitalist Progress Note ---
Date of Service October 31, 2023 Assessment & Plan (1) Acute metabolic encephalopathy: (2) Acute hypernatremia: (3) Acute kidney injury: (4) Dementia: Plan Pt is a 78yoM with PMHx significant for Alzheimer's dementia, Hx of stroke, HLD, BPH, CKD, HTN and psoriasis presenting from [facility] with altered mental status. Acute Metabolic/Toxic Encephalopathy Alzheimer's Dementia Patient was brought to the hospital for concern of altered mental status. History of dementia at baseline; requiring assistance for most ADLs. CT head on admission; no acute findings Brain MRI results reviewed; finding consistent of small lacunar infarct of 5 mm. Central atrophy. UA not suggestive of infection Delirium precautions Started on Zyprexa 5 mg at/at night for behavior control One-to-one as needed, Needed IM haldol 10/26 evening. Psych consult placed per CM request ([facility]'s request per CM) to optimize psych meds. Hypernatremia Acute kidney injury Likely due to poor oral intake. Sodium of 149 noted on arrival Sodium and creatinine down trended with IV hydration Continue to monitor BMP. Intermittently spikes in NA level, likely secondary to poor p.o. intake ISO advanced dementia. Monitor and utilize IVF as needed. Sodium level better today. Encourage frequent oral intake. Urinary retention status post Lombardo placement: Lombardo removed; bladder scan did not show any retention. Continue to monitor with bladder scan daily Cardiomegaly Elevated Trop Trop elevated at 25.7, continue to trend EKG with sinus rhythm with PVCs, RBBB Echocardiogram shows EF of greater than 70%; LVH thickness is moderately increased in a concentric fashion with mild focal hypertrophy of the basal septum. Leukocytosis WBC elevated at 13K at presentation, likely stress related. Improvement noted UA unremarkable at this time Chest XRAY with no signs of infection Abd nontender, no noted skin lesions or diarrhea WBC again up 10/28, procal neg. no signs of infection. no fever. monitor off antibiotic. WBC normalized 10/29. Continue other home meds as ordered Diet: HH DVT prophylaxis: Lovenox SQ Dispo: Medical. Plan to discharge back to [facility] dementia unit on hospice care. CM to assit. Please note the above document was generated using voice recognition software. It may contain grammatical, syntax or spelling errors. Any formal questions or concerns about the content, text or information contained within the body of this dictation should be directly addressed to the provider for clarification Admission and Anticipated Discharge Date Admission Date: October 20, 2023 Subjective Patient seen and examined at bedside. He appears calm and comfortable. Per RN not agitated overnight. Per RN, pt is eating minimal and taking meds. No BM in few days per RN, c/w bowel regimen, will add colace additionally. Physical Exam Physical Exam: Constitutional: calm, sleeping. Not in distress. Respiratory: normal respiratory effort, lungs clear to auscultation, no wheeze, rales, rhonchi. Normal insp/exp effort, no accessory muscle use Cardiovascular: RRR, no murmur, no edema Vessels: no JVD or carotid bruit Chest: normal inspection of chest Abdomen: normal bowel sounds, soft, nontender, no hepatosplenomegaly Musculoskeletal: no cyanosis or clubbing, extremities motor strength 5/5 Skin: no rashes, warm and dry normal turgor Neurologic: PERRL, EOMI, accommodation nl, no face palsy, no dysarthria CN's II- XI intact bilaterally and moves all extremities Results & Data Results & Data Vital Signs (Past 12 Hours) Vital Signs Temp Pulse Pulse Resp BP Pulse Ox O2 Del Method 10/31/23 15:56 36.5 C 61 18 156/78 H 95 Room Air 10/31/23 08:30 76 20 156/69 H 94 Room Air 10/31/23 07:20 Room Air 10/31/23 07:12 36.8 C 19 158/81 H 94 Room Air
[2023-10-31] MEDS: DOCUSATE SODIUM 100 MG CAP PO SCH (16:35)
[2023-11-01 10:46] LABS: BUN Creatinine Ratio 13.1 (10-20); Calcium 9.2 mg/dl (8.6-10.3); Creatinine Clr Calc Pharmacy 51.8 ml/min; Est GFR (African American) 57.7 ml/min; Est GFR (Non-African American) 49.7 ml/min; Phosphorus 2.8 mg/dl (2.5-4.9); Potassium 3.9 mmol/L (3.5-5.1)
--- NOTE | 2023-11-01 11:49 | Psychiatric Consultation ---
Date of Consultation November 01, 2023 Impression / Recommendations Impression Alfredo Ortega is a 78 y/o white male h/o Alzheimer's MNCD, h/o stroke, HLD, BPH, CKD, HTN and psoriasis presenting from [facility] with altered mental status. Presents hypernatremic 2/2 suspected dehydration and inc in behavioral disturbances. Psychiatry consulted for evaluation prior to return to his personal nursing home, [facility]. 11/01/23: Mr. Ortega presents with significant reduction of behavioral disturbances since correction of hypernatremia and has not required emergency medications for agitation since 10/27/23 (5 days ago). He presents stable behaviors on the current regimen. Given concern for anticholinergic burden and QTc prolongation with Trazodone may benefit from dose reduction to 100-150mg nightly. He appears to be tolerating his nightly Olanzapine 5mg HS well, and would additionally recommend Olanzapine 2.5mg PO Q6hr PRN for emergency agitation management when he returns to his personal nursing home. No further interventions recommended at this time, may resume his home cholinesterase inhibitors under the direction of his outpatient psychiatrist and do not recommend to restart home risperidone. (1) Major neurocognitive disorder due to Alzheimer's disease: (2) Delirium due to medical condition without behavioral disturbance: Plan Continue with delirium prevention/management strategies including exposure to light during the day, re-orientation, attempting to keep environment calm and quiet to promote sleep at night Olanzapine 5mg PO HS Olanzapine 2.5mg PO Q6hr PRN for agitation Trazodone 100mg-150mg HS Hold home donepezil, memantine, risperidone Psych History Identifying Data Alfredo Ortega is a 78 y/o white male h/o Alzheimer's MNCD, h/o stroke, HLD, BPH, CKD, HTN and psoriasis presenting from [facility] with altered mental status. Chief Complaint Psychiatric evaluation prior to return to nursing home. History of Present Illness Alfredo Ortega is a 78 y/o white male h/o Alzheimer's MNCD, h/o stroke, HLD, BPH, CKD, HTN and psoriasis presenting from [facility] with altered mental status. Presents hypernatremic 2/2 suspected dehydration and inc in behavioral disturbances. Psychiatry consulted for evaluation prior to return to his personal nursing home, [facility]. Chart review indicates pt has long standing h/o MNCD with ADL assistance required. Initial Na at 149 and now corrected to 143. Initial Risperidone, donepezil, and memantine d/c upon admission. CTH and UA unremarkable. Pt behaviors and sleep currently stabilized with Trazodone 200mg HS, and Olanzapine 5mg HS. Last need for IM antipsychotics for agitation was 10/27/23 and given Haldol. Has presented relatively stable behaviors since then with improved sleep. On interview, pt is somnolent and not alert to the interview. Per nursing staff, pt did not sleep well last night and is currently resting. Allergies Allergy/AdvReac Type Severity Reaction Status Date / Time No Known Allergies Allergy Unverified 10/20/23 17:46 Home Medications Medication Instructions Recorded Confirmed Type acetaminophen 325 mg tablet 325 mg PO Q6H PRN PAIN OR FEVER 10/20/23 10/20/23 History acetaminophen 325 mg tablet 650 mg PO .@8AM,6PM 10/20/23 10/20/23 History aspirin 81 mg tablet,delayed 81 mg PO .@8AM 10/20/23 10/20/23 History release donepezil 10 mg tablet 20 mg PO .@8AM 10/20/23 10/20/23 History finasteride 5 mg tablet 5 mg PO .@8AM 10/20/23 10/20/23 History memantine 5 mg tablet 5 mg PO .@8AM,6PM 10/20/23 10/20/23 History metoprolol succinate 25 mg 25 mg PO .@8AM 10/20/23 10/20/23 History tablet,extended release 24 hr risperidone 0.25 mg tablet 0.25 mg PO .@8AM 10/20/23 10/20/23 History sulfamethoxazole 800 1 tab PO .@8AM,6PM 10/20/23 10/20/23 History mg-trimethoprim 160 mg tablet (Bactrim DS) tamsulosin 0.4 mg capsule 0.4 mg PO .@8AM 10/20/23 10/20/23 History trazodone 100 mg tablet 200 mg PO .@6PM 10/20/23 10/20/23 History Patient History Social History Smoking Status: Unknown if ever smoked Hx Alcohol Use: Yes Hx Substance Use: No Preferred Language: Lao Communication Ability: Impaired Sap Project Manager Required: No Beliefs That Will Affect Care: None Current Living Situation: Personal Care Facility Other Information That Helps Us Care for You: No Assistive Devices: None Physical Exam Psychiatric: Somnolent laying on bed none not observed Vital Signs (Past 24 Hours): Last Vital Signs Temp 36.6 C 11/01/23 09:56 Pulse 59 L 11/01/23 09:56 Resp 19 10/31/23 22:59 BP 122/62 11/01/23 09:56 Pulse Ox 98 11/01/23 09:56 O2 Del Method Room Air 11/01/23 09:56 Results & Data (PSY) Medications Administered Acetaminophen (Acetaminophen 325 Mg Tab) 650 mg PO BID@0800,1800 [place] Stop: 11/19/23 17:59 Last Admin: 10/31/23 17:37 Dose: 650 mg Documented By: Admin: 10/31/23 08:40 Dose: 650 mg Documented By: Admin: 10/30/23 17:35 Dose: 650 mg Documented By: Admin: 10/30/23 10:28 Dose: 650 mg Documented By: Admin: 10/29/23 18:33 Dose: 650 mg Documented By: Admin: 10/29/23 08:24 Dose: 650 mg Documented By: Admin: 10/28/23 17:26 Dose: Not Given Documented By: Admin: 10/28/23 09:29 Dose: Not Given Documented By: Admin: 10/27/23 17:58 Dose: Not Given Documented By: Admin: 10/27/23 10:00 Dose: 650 mg Documented By: DMBobby Admin: 10/26/23 16:56 Dose: Not Given Documented By: Admin: 10/26/23 08:32 Dose: Not Given Documented By: Admin: 10/25/23 17:18 Dose: 650 mg Documented By: KARYN(2) Admin: 10/25/23 08:26 Dose: 650 mg Documented By: KARYN(2) Admin: 10/24/23 18:27 Dose: 650 mg Documented By: Admin: 10/24/23 09:11 Dose: 650 mg Documented By: Admin: 10/23/23 18:34 Dose: Not Given Documented By: Admin: 10/23/23 08:10 Dose: Not Given Documented By: Admin: 10/22/23 17:58 Dose: Not Given Documented By: Admin: 10/22/23 07:54 Dose: 650 mg Documented By: Admin: 10/21/23 16:35 Dose: 650 mg Documented By: Admin: 10/21/23 12:01 Dose: 650 mg Documented By: Admin: 10/21/23 10:20 Dose: Not Given Documented By: Admin: 10/20/23 20:06 Dose: Not Given Documented By: HB Aspirin (Aspirin 81 Mg Ectab) 81 mg PO DAILY@0800 [place] Stop: 11/19/23 18:14 Last Admin: 10/31/23 08:41 Dose: 81 mg Documented By: Admin: 10/30/23 10:29 Dose: 81 mg Documented By: Admin: 10/29/23 08:12 Dose: 81 mg Documented By: Admin: 10/28/23 09:29 Dose: 81 mg Documented By: Admin: 10/27/23 11:24 Dose: Not Given Documented By: Admin: 10/26/23 08:33 Dose: Not Given Documented By: Admin: 10/25/23 08:26 Dose: 81 mg Documented By: KARYN(2) Admin: 10/24/23 09:12 Dose: 81 mg Documented By: Admin: 10/23/23 08:08 Dose: 81 mg Documented By: Admin: 10/22/23 12:37 Dose: Not Given Documented By: Admin: 10/21/23 12:02 Dose: 81 mg Documented By: Admin: 10/21/23 10:20 Dose: Not Given Documented By: Admin: 10/20/23 20:07 Dose: Not Given Documented By: HB Atorvastatin Calcium (Atorvastatin 20 Mg Tab) [facility] [place] [place] 11/20/23 12:44 Last Admin: 10/31/23 08:41 Dose: 20 mg Documented By: Admin: 10/30/23 10:28 Dose: 20 mg Documented By: Admin: 10/29/23 08:13 Dose: 20 mg Documented By: Admin: 10/28/23 09:27 Dose: 20 mg Documented By: Admin: 10/27/23 10:00 Dose: 20 mg Documented By: Admin: 10/26/23 08:34 Dose: Not Given Documented By: Admin: 10/25/23 08:26 Dose: 20 mg Documented By: KARYN(2) Admin: 10/24/23 09:12 Dose: 20 mg Documented By: Admin: 10/23/23 08:10 Dose: Not Given Documented By: Admin: 10/22/23 12:37 Dose: Not Given Documented By: Admin: 10/21/23 13:15 Dose: 20 mg Documented By: DAVY Docusate Sodium (Docusate Sodium 100 Mg Cap) 100 mg PO BID [place] Stop: 11/02/23 21:01 Last Admin: 10/31/23 20:12 Dose: Not Given Documented By: Admin: 10/31/23 16:35 Dose: 100 mg Documented By: CORRIE Enoxaparin Sodium (Enoxaparin Inj 40 Mg/0.4 Ml Syr) 40 mg SQ Q24H [place] Stop: 11/19/23 18:59 Last Admin: 10/31/23 18:32 Dose: 40 mg Documented By: Admin: 10/30/23 18:18 Dose: 40 mg Documented By: Admin: 10/29/23 18:39 Dose: 40 mg Documented By: Admin: 10/28/23 20:54 Dose: 40 mg Documented By: Admin: 10/27/23 19:28 Dose: 40 mg Documented By: Admin: 10/26/23 17:11 Dose: 40 mg Documented By: Admin: 10/25/23 19:20 Dose: 40 mg Documented By: Admin: 10/24/23 18:23 Dose: 40 mg Documented By: Admin: 10/23/23 18:39 Dose: 40 mg Documented By: Admin: 10/22/23 18:23 Dose: 40 mg Documented By: Admin: 10/21/23 20:13 Dose: 40 mg Documented By: Admin: 10/20/23 20:01 Dose: 40 mg Documented By: BASIL Finasteride (Finasteride 5 Mg Tab) 5 mg PO DAILY@0800 [place] Stop: 11/19/23 18:14 Last Admin: 10/31/23 08:41 Dose: 5 mg Documented By: Admin: 10/30/23 10:29 Dose: 5 mg Documented By: Admin: 10/29/23 08:13 Dose: 5 mg Documented By: Admin: 10/28/23 09:27 Dose: 5 mg Documented By: Admin: 10/27/23 10:00 Dose: 5 mg Documented By: Admin: 10/26/23 08:34 Dose: Not Given Documented By: Admin: 10/25/23 08:26 Dose: 5 mg Documented By: KARYN(2) Admin: 10/24/23 09:12 Dose: 5 mg Documented By: Admin: 10/23/23 08:08 Dose: 5 mg Documented By: Admin: 10/22/23 12:37 Dose: Not Given Documented By: Admin: 10/21/23 12:02 Dose: 5 mg Documented By: Admin: 10/21/23 10:21 Dose: Not Given Documented By: Admin: 10/20/23 20:08 Dose: Not Given Documented By: BASIL Metoprolol Succinate (Metoprolol Succ 25mg Ext Rel Tab) 25 mg PO DAILY@0800 [place] Stop: 11/19/23 18:14 Last Admin: 10/31/23 08:42 Dose: 25 mg Documented By: Admin: 10/30/23 10:28 Dose: 25 mg Documented By: Admin: 10/29/23 08:13 Dose: 25 mg Documented By: Admin: 10/28/23 09:27 Dose: 25 mg Documented By: Admin: 10/27/23 15:42 Dose: 25 mg Documented By: Admin: 10/26/23 08:33 Dose: Not Given Documented By: Admin: 10/25/23 08:26 Dose: 25 mg Documented By: KARYN(2) Admin: 10/24/23 09:12 Dose: 25 mg Documented By: Admin: 10/23/23 08:09 Dose: 25 mg Documented By: Admin: 10/22/23 12:37 Dose: Not Given Documented By: Admin: 10/21/23 12:03 Dose: 25 mg Documented By: Admin: 10/21/23 10:21 Dose: Not Given Documented By: Admin: 10/20/23 20:08 Dose: Not Given Documented By: HB Olanzapine (Olanzapine 5 Mg Tablet) 5 mg PO HS [place] Stop: 11/20/23 20:59 Last Admin: 10/31/23 20:11 Dose: 5 mg Documented By: Admin: 10/30/23 20:13 Dose: 5 mg Documented By: [email or web address] Admin: 10/29/23 20:48 Dose: 5 mg Documented By: Admin: 10/28/23 20:54 Dose: 5 mg Documented By: Admin: 10/27/23 21:50 Dose: 5 mg Documented By: Admin: 10/26/23 20:53 Dose: 5 mg Documented By: Admin: 10/25/23 20:31 Dose: 5 mg Documented By: Admin: 10/24/23 19:31 Dose: 5 mg Documented By: Admin: 10/23/23 22:02 Dose: Not Given Documented By: Admin: 10/22/23 20:07 Dose: Not Given Documented By: Admin: 10/21/23 20:14 Dose: 5 mg Documented By: RAMU Olanzapine (Olanzapine 10 Mg/2.1 Ml Sdv) 2.5 mg IM Q4H PRN PRN Reason: Agitation Stop: 11/26/23 19:19 Last Admin: 10/27/23 19:26 Dose: 2.5 mg Documented By: CURRY Sennosides (Senna 8.6 Mg Tab) 17.2 mg PO QAM [facility] Stop: 11/28/23 16:59 Last Admin: 10/31/23 08:42 Dose: 17.2 mg Documented By: Admin: 10/30/23 10:28 Dose: 17.2 mg Documented By: Admin: 10/29/23 18:33 Dose: 17.2 mg Documented By: RUY Tamsulosin HCl (Tamsulosin Hcl 0.4 Mg Cap) 0.4 mg PO DAILY@0800 [place] Stop: 11/19/23 07:59 Last Admin: 10/31/23 08:41 Dose: 0.4 mg Documented By: Admin: 10/30/23 10:29 Dose: 0.4 mg Documented By: Admin: 10/29/23 08:13 Dose: 0.4 mg Documented By: Admin: 10/28/23 09:27 Dose: 0.4 mg Documented By: Admin: 10/27/23 10:00 Dose: 0.4 mg Documented By: Admin: 10/26/23 08:34 Dose: Not Given Documented By: Admin: 10/25/23 08:26 Dose: 0.4 mg Documented By: KARYN(2) Admin: 10/24/23 09:12 Dose: 0.4 mg Documented By: Admin: 10/23/23 08:07 Dose: 0.4 mg Documented By: Admin: 10/22/23 12:37 Dose: Not Given Documented By: Admin: 10/21/23 12:03 Dose: 0.4 mg Documented By: Admin: 10/21/23 10:21 Dose: Not Given Documented By: Admin: 10/20/23 20:06 Dose: Not Given Documented By: BASIL Trazodone HCl (Trazodone Hcl 100 Mg Tab) 200 mg PO DAILY@1800 [place] Stop: 11/19/23 18:14 Last Admin: 10/31/23 17:37 Dose: 200 mg Documented By: Admin: 10/30/23 17:35 Dose: 200 mg Documented By: Admin: 10/29/23 17:10 Dose: 200 mg Documented By: Admin: 10/28/23 19:14 Dose: 200 mg Documented By: Admin: 10/27/23 17:58 Dose: Not Given Documented By: Admin: 10/26/23 17:14 Dose: Not Given Documented By: Admin: 10/25/23 17:18 Dose: 200 mg Documented By: KARYN(2) Admin: 10/24/23 18:27 Dose: 200 mg Documented By: Admin: 10/23/23 18:34 Dose: Not Given Documented By: Admin: 10/22/23 17:58 Dose: Not Given Documented By: Admin: 10/21/23 16:35 Dose: 200 mg Documented By: Admin: 10/20/23 20:08 Dose: Not Given Documented By: BASIL [place] [address] IN/OBS CONSULT LVL 5,80M Patient Type New History Problem Focused Exam Problem Focused Medical Decision Making Low Complexity Diagnoses Major neurocognitive disorder due to Alzheimer's disease G30.9; F02.80 Delirium due to medical condition without behavioral disturbance F05 Time Spent (min) 60
--- NOTE | 2023-11-01 16:25 | Hospitalist Progress Note ---
Date of Service November 01, 2023 Assessment & Plan (1) Acute metabolic encephalopathy: (2) Acute hypernatremia: (3) Acute kidney injury: (4) Dementia: Plan Pt is a 78yoM with PMHx significant for Alzheimer's dementia, Hx of stroke, HLD, BPH, CKD, HTN and psoriasis presenting from [facility] with altered mental status. Acute Metabolic/Toxic Encephalopathy Alzheimer's Dementia Patient was brought to the hospital for concern of altered mental status. History of dementia at baseline; requiring assistance for most ADLs. CT head on admission; no acute findings Brain MRI results reviewed; finding consistent of small lacunar infarct of 5 mm. Central atrophy. UA not suggestive of infection Delirium precautions Started on Zyprexa 5 mg at/at night for behavior control One-to-one as needed, Needed IM haldol 10/26 evening. Psych consult placed per CM request ([facility]'s request per CM) to optimize psych meds. Appreciate psych eval 10/31. Hypernatremia Acute kidney injury Likely due to poor oral intake. Sodium of 149 noted on arrival Sodium and creatinine down trended with IV hydration Continue to monitor BMP. Intermittently spikes in NA level, likely secondary to poor p.o. intake ISO advanced dementia. Monitor and utilize IVF as needed. Sodium level better today. Encourage frequent oral intake. Urinary retention status post Lombardo placement: Lombardo removed; bladder scan did not show any retention. Continue to monitor with bladder scan daily Cardiomegaly Elevated Trop Trop elevated at 25.7, continue to trend EKG with sinus rhythm with PVCs, RBBB Echocardiogram shows EF of greater than 70%; LVH thickness is moderately increased in a concentric fashion with mild focal hypertrophy of the basal septum. Leukocytosis WBC elevated at 13K at presentation, likely stress related. Improvement noted UA unremarkable at this time Chest XRAY with no signs of infection Abd nontender, no noted skin lesions or diarrhea WBC again up 10/28, procal neg. no signs of infection. no fever. monitor off antibiotic. WBC normalized 10/29. Continue other home meds as ordered Diet: HH DVT prophylaxis: Lovenox SQ Dispo: Medical. Plan to discharge back to [facility] dementia unit on hospice care. CM to assit. Please note the above document was generated using voice recognition software. It may contain grammatical, syntax or spelling errors. Any formal questions or concerns about the content, text or information contained within the body of this dictation should be directly addressed to the provider for clarification Admission and Anticipated Discharge Date Admission Date: October 20, 2023 Subjective Patient seen and examined at bedside. He appears calm and comfortable. Per RN not agitated overnight. Pt is eating minimal and taking meds. Physical Exam Physical Exam: Constitutional: calm, sleeping. Not in distress. Respiratory: normal respiratory effort, lungs clear to auscultation, no wheeze, rales, rhonchi. Normal insp/exp effort, no accessory muscle use Cardiovascular: RRR, no murmur, no edema Vessels: no JVD or carotid bruit Chest: normal inspection of chest Abdomen: normal bowel sounds, soft, nontender, no hepatosplenomegaly Musculoskeletal: no cyanosis or clubbing, extremities motor strength 5/5 Skin: no rashes, warm and dry normal turgor Neurologic: PERRL, EOMI, accommodation nl, no face palsy, no dysarthria CN's II- XI intact bilaterally and moves all extremities Results & Data Results & Data Vital Signs (Past 12 Hours) Vital Signs Temp Pulse Pulse Resp BP BP Pulse Ox 11/01/23 15:51 36.7 C 70 16 146/82 H 98 11/01/23 09:56 36.6 C 59 L 122/62 98 O2 Del Method 11/01/23 15:51 Room Air 11/01/23 09:56 Room Air
[2023-11-01] MEDS: traZODone HCL 50 MG TAB PO SCH (17:52)
[2023-11-02 11:18] LABS: BUN Creatinine Ratio 12.9 (10-20); Calcium 8.5 mg/dl (8.6-10.3); Creatinine Clr Calc Pharmacy 57.3 ml/min; Est GFR (Non-African American) 56.1 ml/min; Potassium 3.9 mmol/L (3.5-5.1)
--- NOTE | 2023-11-02 17:14 | Hospitalist Progress Note ---
Date of Service November 02, 2023 Assessment & Plan (1) Acute metabolic encephalopathy: (2) Acute hypernatremia: (3) Acute kidney injury: (4) Dementia: Plan Pt is a 78yoM with PMHx significant for Alzheimer's dementia, Hx of stroke, HLD, BPH, CKD, HTN and psoriasis presenting from [facility] with altered mental status. Acute Metabolic/Toxic Encephalopathy Alzheimer's Dementia Patient was brought to the hospital for concern of altered mental status. History of dementia at baseline; requiring assistance for most ADLs. CT head on admission; no acute findings Brain MRI results reviewed; finding consistent of small lacunar infarct of 5 mm. Central atrophy. UA not suggestive of infection Delirium precautions Started on Zyprexa 5 mg at/at night for behavior control One-to-one as needed, Needed IM haldol 10/26 evening. Psych consult placed per CM request ([facility]'s request per CM) to optimize psych meds. Recommended as needed Zyprexa 2.5 mg Hypernatremia Acute kidney injury Likely due to poor oral intake. Sodium of 149 noted on arrival Sodium and creatinine down trended with IV hydration Continue to monitor BMP. Intermittently spikes in NA level, likely secondary to poor p.o. intake ISO advanced dementia. Monitor and utilize IVF as needed. Sodium level better today. Encourage frequent oral intake. Urinary retention status post Lombardo placement: Lombardo removed; bladder scan did not show any retention. Continue to monitor with bladder scan daily Cardiomegaly Elevated Trop Trop elevated at 25.7, continue to trend EKG with sinus rhythm with PVCs, RBBB Echocardiogram shows EF of greater than 70%; LVH thickness is moderately increased in a concentric fashion with mild focal hypertrophy of the basal septum. Leukocytosis WBC elevated at 13K at presentation, likely stress related. Improvement noted UA unremarkable at this time Chest XRAY with no signs of infection Abd nontender, no noted skin lesions or diarrhea WBC again up 10/28, procal neg. no signs of infection. no fever. monitor off antibiotic. WBC normalized 10/29. Continue other home meds as ordered Diet: HH DVT prophylaxis: Lovenox SQ Dispo: Medical. Plan to discharge back to [facility] dementia unit on hospice care. CM to assit. Please note the above document was generated using voice recognition software. It may contain grammatical, syntax or spelling errors. Any formal questions or concerns about the content, text or information contained within the body of this dictation should be directly addressed to the provider for clarification Admission and Anticipated Discharge Date Admission Date: October 20, 2023 Subjective Patient seen and examined at bedside. He is sleeping comfortably; not agitated No significant events overnight Review of Systems Review of Systems: All systems reviewed & are unremarkable except as noted in Subjective Physical Exam Physical Exam: Constitutional: Awake, oriented to self. Not in distress. Respiratory: normal respiratory effort, lungs clear to auscultation, no wheeze, rales, rhonchi. Normal insp/exp effort, no accessory muscle use Cardiovascular: RRR, no murmur, no edema Vessels: no JVD or carotid bruit Chest: normal inspection of chest Abdomen: normal bowel sounds, soft, nontender, no hepatosplenomegaly Musculoskeletal: no cyanosis or clubbing, extremities motor strength 5/5 Skin: no rashes, warm and dry normal turgor Neurologic: PERRL, EOMI, accommodation nl, no face palsy, no dysarthria CN's II- XI intact bilaterally and moves all extremities Psychiatric: Awake, oriented to self. Results & Data Results & Data Vital Signs (Past 12 Hours) Vital Signs Temp Pulse Resp BP BP Pulse Ox O2 Del Method 11/02/23 14:33 36.6 C 59 L 18 168/83 H 98 Room Air 11/02/23 09:31 36.5 C 66 16 160/86 H 96 Room Air
--- NOTE | 2023-11-03 16:15 | Hospitalist Progress Note ---
Date of Service November 03, 2023 Assessment & Plan (1) Acute metabolic encephalopathy: (2) Acute hypernatremia: (3) Acute kidney injury: (4) Dementia: Plan Pt is a 78yoM with PMHx significant for Alzheimer's dementia, Hx of stroke, HLD, BPH, CKD, HTN and psoriasis presenting from [facility] with altered mental status. Acute Metabolic/Toxic Encephalopathy Alzheimer's Dementia Patient was brought to the hospital for concern of altered mental status. History of dementia at baseline; requiring assistance for most ADLs. CT head on admission; no acute findings Brain MRI results reviewed; finding consistent of small lacunar infarct of 5 mm. Central atrophy. UA not suggestive of infection Delirium precautions Continue on Zyprexa 5 mg at/at night for behavior control One-to-one as needed, Needed IM haldol 10/26 evening. Psych consult placed per CM request ([facility]'s request per CM) to optimize psych meds. Recommended as needed Zyprexa 2.5 mg Hypernatremia Acute kidney injury Likely due to poor oral intake. Sodium of 149 noted on arrival Sodium and creatinine down trended with IV hydration Continue to monitor BMP. Intermittently spikes in NA level, likely secondary to poor p.o. intake ISO advanced dementia. Monitor and utilize IVF as needed. Sodium level better today. Encourage frequent oral intake. Urinary retention status post Lombardo placement: Lombardo removed; bladder scan did not show any retention. Continue to monitor with bladder scan daily Cardiomegaly Elevated Trop Trop elevated at 25.7, continue to trend EKG with sinus rhythm with PVCs, RBBB Echocardiogram shows EF of greater than 70%; LVH thickness is moderately increased in a concentric fashion with mild focal hypertrophy of the basal septum. Leukocytosis WBC elevated at 13K at presentation, likely stress related. Improvement noted UA unremarkable at this time Chest XRAY with no signs of infection Abd nontender, no noted skin lesions or diarrhea WBC again up 10/28, procal neg. no signs of infection. no fever. monitor off antibiotic. WBC normalized 10/29. Continue other home meds as ordered Diet: HH DVT prophylaxis: Lovenox SQ Dispo: Medical. Plan to discharge back to [facility] dementia unit on hospice care. CM to assit. Please note the above document was generated using voice recognition software. It may contain grammatical, syntax or spelling errors. Any formal questions or concerns about the content, text or information contained within the body of this dictation should be directly addressed to the provider for clarification Admission and Anticipated Discharge Date Admission Date: October 20, 2023 Subjective Patient just sitting comfortably; not agitated. Has not required IM medication for agitation Review of Systems Review of Systems: All systems reviewed & are unremarkable except as noted in Subjective Physical Exam Physical Exam: Constitutional: Awake, oriented to self. Not in distress. Respiratory: normal respiratory effort, lungs clear to auscultation, no wheeze, rales, rhonchi. Normal insp/exp effort, no accessory muscle use Cardiovascular: RRR, no murmur, no edema Vessels: no JVD or carotid bruit Chest: normal inspection of chest Abdomen: normal bowel sounds, soft, nontender, no hepatosplenomegaly Musculoskeletal: no cyanosis or clubbing, extremities motor strength 5/5 Skin: no rashes, warm and dry normal turgor Neurologic: PERRL, EOMI, accommodation nl, no face palsy, no dysarthria CN's II- XI intact bilaterally and moves all extremities Psychiatric: Awake, oriented to self. Results & Data Results & Data Vital Signs (Past 12 Hours) Vital Signs Temp Pulse Pulse Resp BP BP Pulse Ox 11/03/23 15:05 36.9 C 75 20 146/79 H 98 11/03/23 07:05 36.6 C 69 20 170/80 H 96 O2 Del Method 11/03/23 15:05 Room Air 11/03/23 07:05 Room Air
--- NOTE | 2023-11-04 16:05 | Hospitalist Progress Note ---
Date of Service November 04, 2023 Assessment & Plan (1) Acute metabolic encephalopathy: (2) Acute hypernatremia: (3) Acute kidney injury: (4) Dementia: Plan Pt is a 78yoM with PMHx significant for Alzheimer's dementia, Hx of stroke, HLD, BPH, CKD, HTN and psoriasis presenting from [facility] with altered mental status. Acute Metabolic/Toxic Encephalopathy Alzheimer's Dementia Patient was brought to the hospital for concern of altered mental status. History of dementia at baseline; requiring assistance for most ADLs. CT head on admission; no acute findings Brain MRI results reviewed; finding consistent of small lacunar infarct of 5 mm. Central atrophy. UA not suggestive of infection Delirium precautions Continue on Zyprexa 5 mg at/at night for behavior control One-to-one as needed, Needed IM haldol 10/26 evening. Psych consult placed per CM request ([facility]'s request per CM) to optimize psych meds. Recommended as needed Zyprexa 2.5 mg Hypernatremia Acute kidney injury Likely due to poor oral intake. Sodium of 149 noted on arrival Sodium and creatinine down trended with IV hydration Continue to monitor BMP. Intermittently spikes in NA level, likely secondary to poor p.o. intake ISO advanced dementia. Monitor and utilize IVF as needed. Sodium level better today. Encourage frequent oral intake. Urinary retention status post Lombardo placement: Lombardo removed; bladder scan did not show any retention. Continue to monitor with bladder scan daily Cardiomegaly Elevated Trop Trop elevated at 25.7, continue to trend EKG with sinus rhythm with PVCs, RBBB Echocardiogram shows EF of greater than 70%; LVH thickness is moderately increased in a concentric fashion with mild focal hypertrophy of the basal septum. Leukocytosis WBC elevated at 13K at presentation, likely stress related. Improvement noted UA unremarkable at this time Chest XRAY with no signs of infection Abd nontender, no noted skin lesions or diarrhea WBC again up 10/28, procal neg. no signs of infection. no fever. monitor off antibiotic. WBC normalized 10/29. Continue other home meds as ordered Diet: HH DVT prophylaxis: Lovenox SQ Dispo: Medical. Plan to discharge back to [facility] dementia unit on hospice care. CM to assit. Please note the above document was generated using voice recognition software. It may contain grammatical, syntax or spelling errors. Any formal questions or concerns about the content, text or information contained within the body of this dictation should be directly addressed to the provider for clarification Admission and Anticipated Discharge Date Admission Date: October 20, 2023 Subjective He is lying on the bed comfortable; not agitation or distress Vitals are stable Review of Systems Review of Systems: Unobtainable due to reduced consciousness Physical Exam Physical Exam: Constitutional: Awake, oriented to self. Not in distress. Respiratory: normal respiratory effort, lungs clear to auscultation, no wheeze, rales, rhonchi. Normal insp/exp effort, no accessory muscle use Cardiovascular: RRR, no murmur, no edema Vessels: no JVD or carotid bruit Chest: normal inspection of chest Abdomen: normal bowel sounds, soft, nontender, no hepatosplenomegaly Musculoskeletal: no cyanosis or clubbing, extremities motor strength 5/5 Skin: no rashes, warm and dry normal turgor Neurologic: PERRL, EOMI, accommodation nl, no face palsy, no dysarthria CN's II- XI intact bilaterally and moves all extremities Psychiatric: Awake, oriented to self. Results & Data Results & Data Vital Signs (Past 12 Hours) Vital Signs Temp Pulse Resp BP Pulse Ox O2 Del Method 11/04/23 15:08 36.5 C 62 18 170/84 H 94 Room Air
[2023-11-04] MEDS: OLANZapine 10 MG/2.1 ML SDV IM PRN (19:27)
--- NOTE | 2023-11-05 14:03 | Hospitalist Progress Note ---
Date of Service November 05, 2023 Assessment & Plan (1) Acute metabolic encephalopathy: (2) Acute hypernatremia: (3) Acute kidney injury: (4) Dementia: Plan Pt is a 78yoM with PMHx significant for Alzheimer's dementia, Hx of stroke, HLD, BPH, CKD, HTN and psoriasis presenting from [facility] with altered mental status. Acute Metabolic/Toxic Encephalopathy Alzheimer's Dementia Patient was brought to the hospital for concern of altered mental status. History of dementia at baseline; requiring assistance for most ADLs. CT head on admission; no acute findings Brain MRI results reviewed; finding consistent of small lacunar infarct of 5 mm. Central atrophy. UA not suggestive of infection Delirium precautions Continue on Zyprexa 5 mg at/at night for behavior control One-to-one as needed, Psych consult placed per CM request ([facility]'s request per CM) to optimize psych meds. Recommended as needed Zyprexa 2.5 mg Hypernatremia Acute kidney injury Likely due to poor oral intake. Sodium of 149 noted on arrival Sodium and creatinine down trended with IV hydration Continue to monitor BMP. Intermittently spikes in NA level, likely secondary to poor p.o. intake ISO advanced dementia. Monitor and utilize IVF as needed. Sodium level better today. Encourage frequent oral intake. Urinary retention status post Lombardo placement: Lombardo removed; bladder scan did not show any retention. Continue to monitor with bladder scan daily Cardiomegaly Elevated Trop Trop elevated at 25.7, continue to trend EKG with sinus rhythm with PVCs, RBBB Echocardiogram shows EF of greater than 70%; LVH thickness is moderately increased in a concentric fashion with mild focal hypertrophy of the basal septum. Leukocytosis WBC elevated at 13K at presentation, likely stress related. Improvement noted UA unremarkable at this time Chest XRAY with no signs of infection Abd nontender, no noted skin lesions or diarrhea WBC again up 10/28, procal neg. no signs of infection. no fever. monitor off antibiotic. WBC normalized 10/29. Continue other home meds as ordered Diet: HH DVT prophylaxis: Lovenox SQ Dispo: Medical. Plan to discharge back to [facility] dementia unit on hospice care. CM to assit. Please note the above document was generated using voice recognition software. It may contain grammatical, syntax or spelling errors. Any formal questions or concerns about the content, text or information contained within the body of this dictation should be directly addressed to the provider for clarification Admission and Anticipated Discharge Date Admission Date: October 20, 2023 Subjective Appears comfortable; not in distress. Required 1 dose of IM Zyprexa last evening Review of Systems Review of Systems: Unobtainable due to cognitive status Physical Exam Physical Exam: Constitutional: appears comfortable; not in distress Respiratory: normal respiratory effort, lungs clear to auscultation, no wheeze, rales, rhonchi. Normal insp/exp effort, no accessory muscle use Cardiovascular: RRR, no murmur, no edema Vessels: no JVD or carotid bruit Chest: normal inspection of chest Abdomen: normal bowel sounds, soft, nontender, no hepatosplenomegaly Musculoskeletal: no cyanosis or clubbing, extremities motor strength 5/5 Skin: no rashes, warm and dry normal turgor Neurologic: PERRL, EOMI, accommodation nl, no face palsy, no dysarthria CN's II- XI intact bilaterally and moves all extremities Results & Data Results & Data Vital Signs (Past 12 Hours) Vital Signs Temp Pulse Resp BP Pulse Ox O2 Del Method 11/05/23 07:00 36.7 C 65 20 158/72 H 97 Room Air
[2023-11-06] MEDS: DEXTROSE 5% 1,000 ML IV SCH (09:27)
--- NOTE | 2023-11-06 12:12 | Hospitalist Progress Note ---
Date of Service November 06, 2023 Assessment & Plan (1) Acute metabolic encephalopathy: (2) Acute hypernatremia: (3) Acute kidney injury: (4) Dementia: Plan Pt is a 78yoM with PMHx significant for Alzheimer's dementia, Hx of stroke, HLD, BPH, CKD, HTN and psoriasis presenting from [facility] with altered mental status. Acute Metabolic/Toxic Encephalopathy Alzheimer's Dementia Patient was brought to the hospital for concern of altered mental status. History of dementia at baseline; requiring assistance for most ADLs. CT head on admission; no acute findings Brain MRI results reviewed; finding consistent of small lacunar infarct of 5 mm. Central atrophy. UA not suggestive of infection Delirium precautions Continue on Zyprexa 5 mg at/at night for behavior control One-to-one as needed, Psych consult placed per CM request ([facility]'s request per CM) to optimize psych meds. Recommended as needed Zyprexa 2.5 mg Hypernatremia Acute kidney injury Likely due to poor oral intake. Sodium of 149 noted on arrival Sodium and creatinine down trended with IV hydration Continue to monitor BMP. Intermittently spikes in NA level, likely secondary to poor p.o. intake ISO advanced dementia. Monitor and utilize IVF as needed. Sodium level better today. Encourage frequent oral intake. Urinary retention status post Lombardo placement: Lombardo removed; bladder scan did not show any retention. Continue to monitor with bladder scan daily Cardiomegaly Elevated Trop Trop elevated at 25.7, continue to trend EKG with sinus rhythm with PVCs, RBBB Echocardiogram shows EF of greater than 70%; LVH thickness is moderately increased in a concentric fashion with mild focal hypertrophy of the basal septum. Leukocytosis WBC elevated at 13K at presentation, likely stress related. Improvement noted UA unremarkable at this time Chest XRAY with no signs of infection Abd nontender, no noted skin lesions or diarrhea WBC again up 10/28, procal neg. no signs of infection. no fever. monitor off antibiotic. WBC normalized 10/29. Continue other home meds as ordered Diet: HH DVT prophylaxis: Lovenox SQ Dispo: Medical. Plan to discharge back to [facility] dementia unit on hospice care. CM to assist Please note the above document was generated using voice recognition software. It may contain grammatical, syntax or spelling errors. Any formal questions or concerns about the content, text or information contained within the body of this dictation should be directly addressed to the provider for clarification Admission and Anticipated Discharge Date Admission Date: October 20, 2023 Subjective Appears comfortable; intermittency agitated. Review of Systems Review of Systems: All systems reviewed & are unremarkable except as noted in Subjective Physical Exam Physical Exam: Constitutional: appears comfortable; not in distress Respiratory: normal respiratory effort, lungs clear to auscultation, no wheeze, rales, rhonchi. Normal insp/exp effort, no accessory muscle use Cardiovascular: RRR, no murmur, no edema Vessels: no JVD or carotid bruit Chest: normal inspection of chest Abdomen: normal bowel sounds, soft, nontender, no hepatosplenomegaly Musculoskeletal: no cyanosis or clubbing, extremities motor strength 5/5 Skin: no rashes, warm and dry normal turgor Neurologic: PERRL, EOMI, accommodation nl, no face palsy, no dysarthria CN's II- XI intact bilaterally and moves all extremities Results & Data Results & Data Vital Signs (Past 12 Hours) Vital Signs Temp Pulse Pulse Resp BP Pulse Ox O2 Del Method 11/06/23 10:55 36.6 C 62 14 173/80 H 98 Room Air 11/06/23 07:29 36.8 C 77 16 158/79 H 97 Room Air
[2023-11-07 10:07] LABS: BUN Creatinine Ratio 9.7 (10-20); Calcium 9.3 mg/dl (8.6-10.3); Creatinine Clr Calc Pharmacy 62.8 ml/min; Est GFR (African American) 72.8 ml/min; Est GFR (Non-African American) 62.8 ml/min; Potassium 3.7 mmol/L (3.5-5.1)
[2023-11-07] MEDS: OLANZapine 5 MG TABLET PO SCH (10:21)
--- NOTE | 2023-11-07 16:12 | Hospitalist Progress Note ---
Date of Service November 07, 2023 Assessment & Plan (1) Acute metabolic encephalopathy: (2) Acute hypernatremia: (3) Acute kidney injury: (4) Dementia: Plan Pt is a 78yoM with PMHx significant for Alzheimer's dementia, Hx of stroke, HLD, BPH, CKD, HTN and psoriasis presenting from [facility] with altered mental status. Acute Metabolic/Toxic Encephalopathy Alzheimer's Dementia Patient was brought to the hospital for concern of altered mental status. History of dementia at baseline; requiring assistance for most ADLs. CT head on admission; no acute findings Brain MRI results reviewed; finding consistent of small lacunar infarct of 5 mm. Central atrophy. UA not suggestive of infection Delirium precautions Increase Zyprexa 5 mg to twice daily One-to-one as needed, Psych consult placed per CM request ([facility]'s request per CM) to optimize psych meds. Recommended as needed Zyprexa 2.5 mg Hypernatremia Acute kidney injury Likely due to poor oral intake. Sodium of 149 noted on arrival Sodium and creatinine down trended with IV hydration Continue to monitor BMP. Intermittently spikes in NA level, likely secondary to poor p.o. intake ISO advanced dementia. Monitor and utilize IVF as needed. Sodium level better today. Encourage frequent oral intake. Urinary retention status post Lombardo placement: Lombardo removed; bladder scan did not show any retention. Continue to monitor with bladder scan daily Cardiomegaly Elevated Trop Trop elevated at 25.7, continue to trend EKG with sinus rhythm with PVCs, RBBB Echocardiogram shows EF of greater than 70%; LVH thickness is moderately increased in a concentric fashion with mild focal hypertrophy of the basal septum. Leukocytosis WBC elevated at 13K at presentation, likely stress related. Improvement noted UA unremarkable at this time Chest XRAY with no signs of infection Abd nontender, no noted skin lesions or diarrhea WBC again up 10/28, procal neg. no signs of infection. no fever. monitor off antibiotic. WBC normalized 10/29. Continue other home meds as ordered Diet: HH DVT prophylaxis: Lovenox SQ Dispo: Medical. Possible discharge on Tuesday on hospice care to [facility] Please note the above document was generated using voice recognition software. It may contain grammatical, syntax or spelling errors. Any formal questions or concerns about the content, text or information contained within the body of this dictation should be directly addressed to the provider for clarification Admission and Anticipated Discharge Date Admission Date: October 20, 2023 Subjective Patient seen and examined at bedside. He was intermittently agitated but calmed down later Review of Systems Review of Systems: Unobtainable due to mental health condition Physical Exam Physical Exam: Constitutional: appears comfortable; not in distress Respiratory: normal respiratory effort, lungs clear to auscultation, no wheeze, rales, rhonchi. Normal insp/exp effort, no accessory muscle use Cardiovascular: RRR, no murmur, no edema Vessels: no JVD or carotid bruit Chest: normal inspection of chest Abdomen: normal bowel sounds, soft, nontender, no hepatosplenomegaly Musculoskeletal: no cyanosis or clubbing, extremities motor strength 5/5 Skin: no rashes, warm and dry normal turgor Neurologic: PERRL, EOMI, accommodation nl, no face palsy, no dysarthria CN's II- XI intact bilaterally and moves all extremities Results & Data Results & Data Vital Signs (Past 12 Hours) Vital Signs Temp Pulse Pulse Resp BP BP Pulse Ox 11/07/23 14:50 35.9 C L 70 16 158/91 H 97 11/07/23 13:09 36.2 C L 77 18 113/77 97 11/07/23 07:37 36.2 C L 68 16 149/89 H 98 O2 Del Method 11/07/23 14:50 Room Air 11/07/23 13:09 Room Air 11/07/23 07:37 Room Air
--- NOTE | 2023-11-08 14:05 | Hospitalist Progress Note ---
Date of Service November 08, 2023 Assessment & Plan (1) Acute metabolic encephalopathy: (2) Acute hypernatremia: (3) Acute kidney injury: (4) Dementia: Plan Pt is a 78yoM with PMHx significant for Alzheimer's dementia, Hx of stroke, HLD, BPH, CKD, HTN and psoriasis presenting from [facility] with altered mental status. Acute Metabolic/Toxic Encephalopathy Alzheimer's Dementia Patient was brought to the hospital for concern of altered mental status. History of dementia at baseline; requiring assistance for most ADLs. CT head on admission; no acute findings Brain MRI results reviewed; finding consistent of small lacunar infarct of 5 mm. Central atrophy. UA not suggestive of infection Delirium precautions continue Increased dose of Zyprexa 5 mg to twice daily One-to-one as needed, Psych consult placed per CM request ([facility]'s request per CM) to optimize psych meds. Recommended as needed Zyprexa 2.5 mg Hypernatremia Acute kidney injury Likely due to poor oral intake. Sodium of 149 noted on arrival Sodium and creatinine down trended with IV hydration Continue to monitor BMP. Intermittently spikes in NA level, likely secondary to poor p.o. intake ISO advanced dementia. Monitor and utilize IVF as needed. Sodium level better today. Encourage frequent oral intake. Urinary retention status post Lombardo placement: Lombardo removed; bladder scan did not show any retention. Continue to monitor with bladder scan daily Cardiomegaly Elevated Trop Trop elevated at 25.7, continue to trend EKG with sinus rhythm with PVCs, RBBB Echocardiogram shows EF of greater than 70%; LVH thickness is moderately increased in a concentric fashion with mild focal hypertrophy of the basal septum. Leukocytosis WBC elevated at 13K at presentation, likely stress related. Improvement noted UA unremarkable at this time Chest XRAY with no signs of infection Abd nontender, no noted skin lesions or diarrhea WBC again up 10/28, procal neg. no signs of infection. no fever. monitor off antibiotic. WBC normalized 10/29. Continue other home meds as ordered Diet: HH DVT prophylaxis: Lovenox SQ Dispo: Medical. Discharge on Tuesday on hospice care to [facility] Please note the above document was generated using voice recognition software. It may contain grammatical, syntax or spelling errors. Any formal questions or concerns about the content, text or information contained within the body of this dictation should be directly addressed to the provider for clarification Admission and Anticipated Discharge Date Admission Date: October 20, 2023 Subjective He appears comfortable ; not in distress. Vital signs stable Review of Systems Review of Systems: All systems reviewed & are unremarkable except as noted in Subjective Physical Exam Physical Exam: Constitutional: appears comfortable; not in distress Respiratory: normal respiratory effort, lungs clear to auscultation, no wheeze, rales, rhonchi. Normal insp/exp effort, no accessory muscle use Cardiovascular: RRR, no murmur, no edema Vessels: no JVD or carotid bruit Chest: normal inspection of chest Abdomen: normal bowel sounds, soft, nontender, no hepatosplenomegaly Musculoskeletal: no cyanosis or clubbing, extremities motor strength 5/5 Skin: no rashes, warm and dry normal turgor Neurologic: PERRL, EOMI, accommodation nl, no face palsy, no dysarthria CN's II- XI intact bilaterally and moves all extremities Results & Data Results & Data Vital Signs (Past 12 Hours) Vital Signs Temp Pulse Resp BP Pulse Ox O2 Del Method 11/08/23 08:30 67 20 141/71 H 100 Room Air 11/08/23 07:27 36.2 C L 77 18 138/87 94 Room Air
--- NOTE | 2023-11-09 13:57 | Discharge Summary ---
Discharge Summary Date of Service November 09, 2023 Notes For Next Care Provider Pt was discharged with Hospice Services Medication Changes From Visit New Prescriptions: Atorvastatin 20mg daily and Olanzapine 5mg BID Per Psychiatry: Trazodone changed to 100mg qhs Stop donepezil, memantine and risperidone Admission HPI Per Admitting Provider Pt is a 78yoM with PMHx significant for Alzheimer's dementia, Hx of stroke, HLD, BPH, CKD, HTN and psoriasis presenting from [facility] with altered mental status. Pt's daughter who is his POA is at bedside as well as her . They provide most of the history as pt is confused and nonverbal at the time of the exam. They note that they were called by [facility] and advised that the pt has been "declining over the last few days". States she was told that he was thrashing, having difficulty swallowing and eating. He was also sleeping more than usual. Notes he does get UTIs and they have made him confused in the past. Concerned that he might have another UTI. Pt was brought in for further evaluation and noted to have hypernatremia and an MOHINDER. He was treated with IV fluids in the ED. Admission Exam Per Admitting Provider General: Alert, disoriented. No acute distress Skin: No noted rashes or bruises Psych: Appropriate mood and affect Neuro: No gross deficits HEENT: NC/AT CV: RRR Resp: Breath sounds clear bilaterally, no increased effort of breathing. Abdomen: Soft, nontender, nondistended. Extremities: edema in lower extremities bilaterally. Principal Dx & Hospital Course #1 = Principal Diagnosis (1) Acute metabolic encephalopathy: (2) Acute hypernatremia: (3) Acute kidney injury: (4) Dementia: Plan Pt is a 78yoM with PMHx significant for Alzheimer's dementia, Hx of stroke, HLD, BPH, CKD, HTN and psoriasis presenting from [facility] with altered mental status. Pt was discharged back to [facility] with hospice services after extended hospitalization. Acute Metabolic/Toxic Encephalopathy Alzheimer's Dementia Patient was brought to the hospital for concern of altered mental status. History of dementia at baseline; requiring assistance for most ADLs. CT head on admission; no acute findings Brain MRI results reviewed; finding consistent of small lacunar infarct of 5 mm. Central atrophy. UA not suggestive of infection Delirium precautions Psychiatry was consulted, appreciate recs. They recommended the following: "Continue with delirium prevention/management strategies including exposure to light during the day, re-orientation, attempting to keep environment calm and quiet to promote sleep at night Olanzapine 5mg PO HS Olanzapine 2.5mg PO Q6hr PRN for agitation Trazodone 100mg-150mg HS Hold home donepezil, memantine, risperidone" Dose of zyprexa was subsequently increased to 5mg twice daily and discharged with the same. Discharged with hospice services Hypernatremia Acute kidney injury Likely due to poor oral intake. Sodium of 149 noted on arrival Sodium and creatinine down trended with IV hydration Intermittently spikes in NA level, likely secondary to poor p.o. intake ISO advanced dementia. Monitor and utilize IVF as needed. Sodium level improved to normal on discharge Discharged with hospice services Urinary retention status post L[place] placement Lombardo removed; bladder scan did not show any retention. Pt subsequently utilized a condom catheter while hospitalized. Cardiomegaly Elevated Trop Trop elevated at 25.7 EKG with sinus rhythm with PVCs, RBBB Echocardiogram shows EF of greater than 70%; LVH thickness is moderately increased in a concentric fashion with mild focal hypertrophy of the basal septu m. Doubt ACS Discharged with hospice services Leukocytosis WBC elevated at 13K at presentation, likely stress related. Improvement noted UA unremarkable at this time Chest XRAY with no signs of infection Abd nontender, no noted skin lesions or diarrhea WBC again up 10/28, procal neg. no signs of infection. no fever. monitor off antibiotic. WBC normalized 10/29. Discharged with hospice services Continue other home meds as ordered Discharge Exam General: Alert, disoriented. No acute distress Psych: Disoriented Neuro: No gross deficits while laying in bed HEENT: NC/AT Extremities: No edema in lower extremities bilaterally. Updated Medication List Medication Instructions Recorded Confirmed Type acetaminophen 325 mg tablet 325 mg PO Q6H PRN PAIN OR FEVER 10/20/23 10/20/23 History acetaminophen 325 mg tablet 650 mg PO .@8AM,6PM 10/20/23 10/20/23 History aspirin 81 mg tablet,delayed 81 mg PO .@8AM 10/20/23 10/20/23 History release donepezil 10 mg tablet 20 mg PO .@8AM 10/20/23 10/20/23 History metoprolol succinate 25 mg 25 mg PO .@8AM 10/20/23 10/20/23 History tablet,extended release 24 hr sulfamethoxazole 800 1 tab PO .@8AM,6PM 10/20/23 10/20/23 History mg-trimethoprim 160 mg tablet (Bactrim DS) tamsulosin 0.4 mg capsule 0.4 mg PO .@8AM 10/20/23 10/20/23 History atorvastatin 20 mg tablet 20 mg PO QAM #30 tabs 11/08/23 Rx finasteride 5 mg tablet 5 mg PO .@8AM #30 tabs 11/08/23 Rx olanzapine 5 mg tablet 5 mg PO BID #60 tabs 11/08/23 Rx trazodone 100 mg tablet 100 mg PO .@6PM #30 tabs 11/08/23 Rx Hospital Stay Data Consultations 10/20/23 15:33 ED Decision to Admit Stat 10/31/23 15:06 Consult Psychiatry Routine Diagnostic Imagining Performed 10/20/23 10:47 CT head/brain wo con Stat 10/20/23 16:55 MRI Brain [MR brain wo/w con] Routine Chest X-Ray 10/20/23 10:47 XR chest 1V portable HISTORY: Shortness of breath. confusion COMPARISON: None. FINDINGS: There are low lung volumes. No pneumothorax. No pleural effusions. The cardiac silhouette is mildly enlarged. There is mild diffuse interstitial th ickening. This is likely chronic. No focal lung consolidations to suggest pneumonia. No evidence for pulmonary edema. There are old, healed right-sided rib fractures. IMPRESSION: 1. No acute process within the chest. 2. Mild cardiomegaly. ACT 112: Negative or not required by law. Electronically signed by: Sanchez Covington M.D. 10/20/2023 11:[address] 10/20/23 10:47 CT head/brain wo con CLINICAL HISTORY: 78 years-old Male with confusion. No acute process. Acutely altered mental status TECHNIQUE: Multiple axial CT images of the head were obtained without contrast. A dose lowering technique was utilized adhering to the principles of ALARA. CT DOSE: 625.8 mGy.cm COMPARISON: None. FINDINGS: No acute intracranial hemorrhage, midline shift, intracranial mass, hydrocephalus, territorial ischemia or abnormal extra-axial collection. Coarse calcifications of the falx cerebri. Involutional changes with chronic microvascular ischemic disease. Ventriculomegaly is likely on an ex vacuo basis. The calvarium is intact. The paranasal sinuses, mastoid air cells, and middle ear cavities are clear. IMPRESSION: No acute intracranial abnormality. ACT 112: Negative or not required by law. The above report was generated using voice recognition software. It may contain grammatical, syntax or spelling errors. Electronically signed by: Sami Noble M.D. 10/20/2023 12:54 PM Brain MRI 10/20/23 16:55 Exam(s): MRI HEAD W/WO Contrast IV Amt: 9cc gadavist EXAM: MR Head Without and With Intravenous Contrast CLINICAL HISTORY: AMS. TECHNIQUE: Magnetic resonance images of the head/brain without and with intravenous contrast in multiple planes. CONTRAST: 9cc Gadavist of IV contrast COMPARISON: Noncontrast head CT performed at 1159 hrs. FINDINGS: Brain: Punctate focus of diffusion restriction in the periventricular deep white matter of the right parietal region measuring only 5 mm. No intracranial hemorrhage. Diffuse periventricular hyperintense T2 FLAIR signal. Prominent parenchymal volume loss with prominence of the cerebral sulci and sylvian fissures. Ventricles: Prominence of the lateral and third ventricles are presumed related to central atrophy. No effacement or midline shift. The expected midline structures are noted on the sagittal imaging. Bones/joints: Unremarkable. No acute fracture. Soft tissues: No abnormal enhancement following contrast administration. Sinuses: Unremarkable as visualized. No acute sinusitis. Mastoid air cells: Unremarkable as visualized. No mastoid effusion. Orbits: Unremarkable as visualized. IMPRESSION: 1. Punctate focus of diffusion restriction in the periventricular deep white matter of the right parietal region measuring only 5 mm. Findings are consistent with a small lacunar infarct. The clinical significance of this finding is indeterminant and this is presumed incidental. 2. Prominent underlying chronic parenchymal involutional changes and deep white matter presumed microvascular changes. No abnormal parenchymal enhancement. 3. Prominence of the lateral and third ventricles is presumed related to central atrophy rather than alternate etiology such as normal pressure hydrocephalus. Electronically signed by: Jeffrey Bateman MD 10/21/23 01:23 AM Discharge Instructions Given to Patient (Per Discharging Provider) You are being discharged to [facility] on Hospice. Total Time Total Time Spent Total Time Spent (In Minutes): 75
== END 2023-11-09 13:29 | disposition hospice, inpatient (51) | DRG 56 ==
LOC: ED 10:37 → EDINP 15:36 → SUATTDRO 15:36 → EDINP 17:17 → 4W 10-21 11:51 → 3W 10-22 17:47
DX: Z78.1 Physical restraint status; E78.5 Hyperlipidemia, unspecified; R79.89 Other specified abnormal findings of blood chemistry; N17.9 Acute kidney failure, unspecified; I63.9 Cerebral infarction, unspecified; G93.41 Metabolic encephalopathy; E87.0 Hyperosmolality and hypernatremia; N18.9 Chronic kidney disease, unspecified; I95.1 Orthostatic hypotension; N40.1 Benign prostatic hyperplasia with lower urinary tract symptoms; R33.8 Other retention of urine; G30.9 Alzheimer's disease, unspecified; E83.41 Hypermagnesemia; Z11.52 Encounter for screening for COVID-19; R13.10 Dysphagia, unspecified; Z79.899 Other long term (current) drug therapy; Z79.82 Long term (current) use of aspirin; Z86.73 Personal history of transient ischemic attack (TIA), and cerebral infarction without residual deficits; I12.9 Hypertensive chronic kidney disease with stage 1 through stage 4 chronic kidney disease, or unspecified chronic kidney disease; F02.C11 Dementia in other diseases classified elsewhere, severe, with agitation